=== PATIENT | female | born 1955 | race Caucasian/White ===

== ENCOUNTER 2016-10-28 03:21 | Inpatient (IN) | payer OTHER ==
[~2016-10-28] VITALS: Ht 174 cm; Wt 98.3 kg
[~2016-10-28 03:21] MED LIST: AMITRIPTYLINE H25 MG PO; ASPIRIN EC325 MG PO; AUGMENTIN875 MG PO; BACTRIM,SEPT1 TABLET PO; BISOPROLOL-HCT1 EACH PO; BUSPIRONE HCL10 MG PO; CARDIZEM60 MG PO; CELEXA20 MG PO; CITALOPRAM HBR20 MG PO; FLORASTOR250 MG PO; GLIPIZIDE XL10 MG PO; GLIPIZIDE5 MG PO; GLUCOPHAGE500 MG PO; KEFLEX500 MG PO; LEVEMIR FL100 UNIT/1 SC; LISINOPRIL-HCT1 EAC3 PO; MECLIZINE HCL25 MG PO; METFORMIN HCL1000 MG PO; NEURONTIN300 MG PO; NEXIUM40 MG PO; NITROSTAT0.4 MG SL; PEN-VEE K,VEET500 MG PO; PRAVASTATIN SOD40 MG PO; PRIMIDONE50 MG PO; PROMETHAZINE12.5 M1 PO; VOLTAREN 1% GE100 GM TP; ZIAC 10/6.251 TABLET PO; ZOFRAN ODT4 MG PO
[2016-10-28 04:25] LABS: EOSINOPHIL (%) 0.5 % (0-5); EOSINOPHIL COUNT 0.1 K/uL (0-0.3); HEMATOCRIT 38.3 % (36.0-46.0); IMMATURE GRANULOCYTE (%) 0.7 % (0.0-0.7); IMMATURE GRANULOCYTE COUNT 0.8 K/uL; MCH 29.8 PG (29.0-34.0); MCHC 33.9 G/DL (30.0-36.0); MCV 87.8 FL (83-99); MEAN PLAT.VOLUME 12.1 uM^3 (9.5-12.4); MONOCYTE (%) 3.2 % (3-12); MONOCYTE COUNT 0.4 K/uL (0-0.8); NEUTROPHIL (%) 86.8 % (45-76); NEUTROPHIL COUNT 10.1 K/uL (1.8-6.4); PLATELET COUNT 205 K/uL (156-360); RBC DIS.WIDTH-CV 13.1 % (11.8-14.6); RBC DIS.WIDTH-SD 40.6 % (39-53); RED BLOOD COUNT 4.36 M/uL (3.80-5.20); WHITE BLOOD COUNT 11.6 K/uL (4.1-10.2)
[2016-10-28 04:35] LABS: CHLORIDE 101 mEq/L (99-109); POTASSIUM 3.8 mEq/L (3.7-5.4); SODIUM 136 mEq/L (136-147)
[2016-10-28 04:37] LABS: GLUCOSE 340 mg/dL (70-99)
[2016-10-28 04:38] LABS: ANION GAP 10 MEQ/L (2-14)
[2016-10-28 04:39] LABS: TOTAL BILIRUBIN 0.5 mg/dL (0.0-1.0)
[2016-10-28 04:40] LABS: ALKALINE PHOSPHATASE 74 IU/L (3-129)
[2016-10-28 04:41] LABS: GFR ESTIMATE (CALCULATED) > 59 mL/min/
[2016-10-28 04:42] LABS: UREA NITROGEN (BUN) 14 mg/dL (9-23)
[2016-10-28 06:37] LABS: ADD MIUA? YES; BILIRUBIN NEGATIVE; BLOOD SMALL; COLOR YELLOW ((YELLOW)); GLUCOSE (STRIP) >=1000; KETONES 15; LEUKOCYTES SMALL; NITRITE NEGATIVE; PROTEIN (STRIP) TRACE; SPECIFIC GRAVITY 1.034 (1.000-1.030); UROBILINOGEN 0.2 MG/DL (0.2-1.0)
[2016-10-28 06:53] LABS: EPITHELIAL CELLS RARE; RED BLOOD CELLS RARE /HPF (0-5)
[2016-10-28 06:54] LABS: BACTERIA 3+; CASTS NONE SEEN /LPF; CRYSTALS NONE SEEN; MUCUS NONE SEEN; UCUL ADDED? YES
[2016-10-28 08:15] LABS: POINT-OF-CARE METER ID UU13113747
[2016-10-28 08:35] LABS: TROP-I INTERPRETATION NEGATIVE; TROPONIN-I 0.01 ng/mL (0.0-0.30)
[2016-10-28 09:11] VITALS: BP 190/92
[2016-10-28 09:37] VITALS: BP 157/75
[2016-10-28 11:14] VITALS: BP 145/69
[2016-10-28 15:13] LABS: EOSINOPHIL (%) 0 % (0-5); HEMATOCRIT 38.7 % (36.0-46.0); IMMATURE GRANULOCYTE (%) 0.4 % (0.0-0.7); IMMATURE GRANULOCYTE COUNT 0.1 K/uL; MCH 30.1 PG (29.0-34.0); MCHC 34.1 G/DL (30.0-36.0); MCV 88.4 FL (83-99); MEAN PLAT.VOLUME 12.5 uM^3 (9.5-12.4); MONOCYTE (%) 1.1 % (3-12); MONOCYTE COUNT 0.2 K/uL (0-0.8); NEUTROPHIL (%) 91.8 % (45-76); NEUTROPHIL COUNT 13.6 K/uL (1.8-6.4); PLATELET COUNT 247 K/uL (156-360); RBC DIS.WIDTH-CV 13.2 % (11.8-14.6); RBC DIS.WIDTH-SD 42.2 % (39-53); RED BLOOD COUNT 4.38 M/uL (3.80-5.20); WHITE BLOOD COUNT 14.8 K/uL (4.1-10.2)
[2016-10-28 15:34] LABS: ALKALINE PHOSPHATASE 76 IU/L (3-129); ANION GAP 8 MEQ/L (2-14); CHLORIDE 98 MEQ/L (99-109); GFR ESTIMATE (CALCULATED) > 59 mL/min/; GLUCOSE 331 mg/dL (70-99); POTASSIUM 4.4 MEQ/L (3.7-5.4); SAMPLE HEMOLYSIS CHECK 1; SAMPLE ICTERIC CHECK 0; SAMPLE LIPEMIA CHECK 0; SODIUM 131 MEQ/L (136-147); TOTAL BILIRUBIN 0.4 MG/DL (0.0-1.0); UREA NITROGEN (BUN) 16 mg/dL (9-23)
[2016-10-28 15:38] VITALS: BP 157/77
[2016-10-28 20:32] VITALS: BP 172/80
[2016-10-28 21:29] LABS: POINT-OF-CARE METER ID UU14162513
[2016-10-28 23:41] VITALS: BP 121/58
[2016-10-29] VITALS (8 sets, daily range): BP systolic 128–170; BP diastolic 61–82
[2016-10-29 03:13] LABS: POINT-OF-CARE METER ID UU13113700
[2016-10-29 06:13] LABS: EOSINOPHIL (%) 0.1 % (0-5); HEMATOCRIT 37.6 % (36.0-46.0); IMMATURE GRANULOCYTE (%) 0.4 % (0.0-0.7); IMMATURE GRANULOCYTE COUNT 0.1 K/uL; LYMPHOCYTE COUNT 1.4 K/uL (1.0-2.8); MCH 28.7 PG (29.0-34.0); MCHC 32.2 G/DL (30.0-36.0); MCV 89.1 FL (83-99); MEAN PLAT.VOLUME 12.8 uM^3 (9.5-12.4); MONOCYTE (%) 3.8 % (3-12); MONOCYTE COUNT 0.5 K/uL (0-0.8); NEUTROPHIL (%) 84.9 % (45-76); NEUTROPHIL COUNT 11.4 K/uL (1.8-6.4); PLATELET COUNT 250 K/uL (156-360); RBC DIS.WIDTH-CV 13.6 % (11.8-14.6); RBC DIS.WIDTH-SD 43.7 % (39-53); RED BLOOD COUNT 4.22 M/uL (3.80-5.20); WHITE BLOOD COUNT 13.4 K/uL (4.1-10.2)
[2016-10-29 06:37] LABS: ANION GAP 8 MEQ/L (2-14); CHLORIDE 100 MEQ/L (99-109); GFR ESTIMATE (CALCULATED) > 59 mL/min/; GLUCOSE 250 mg/dL (70-99); POTASSIUM 4.2 MEQ/L (3.7-5.4); SAMPLE HEMOLYSIS CHECK 0; SAMPLE ICTERIC CHECK 0; SAMPLE LIPEMIA CHECK 0; SODIUM 135 MEQ/L (136-147); UREA NITROGEN (BUN) 17 mg/dL (9-23)
[2016-10-29 07:02] LABS: Estimated Average Glucose 321 mg/dL (70-123); HEMOGLOBIN A1c (GLYCOHEMOGLOB) 12.8 % HGB (Below 5.7)
[2016-10-29 10:32] LABS: POINT-OF-CARE METER ID UU13113700
[2016-10-29 11:33] LABS: TROP-I INTERPRETATION NEGATIVE; TROPONIN-I < 0.01 ng/mL (0.0-0.30)
[2016-10-29 16:56] LABS: TROP-I INTERPRETATION NEGATIVE; TROPONIN-I < 0.01 ng/mL (0.0-0.30)
[2016-10-29 17:56] LABS: POINT-OF-CARE METER ID UU14162513
[2016-10-30 00:17] VITALS: BP 156/69
[2016-10-30 03:51] VITALS: BP 152/67
[2016-10-30 07:16] LABS: EOSINOPHIL (%) 0.2 % (0-5); HEMATOCRIT 37.1 % (36.0-46.0); IMMATURE GRANULOCYTE (%) 0.6 % (0.0-0.7); IMMATURE GRANULOCYTE COUNT 0.1 K/uL; LYMPHOCYTE COUNT 1.7 K/uL (1.0-2.8); MCH 28.7 PG (29.0-34.0); MCHC 32.6 G/DL (30.0-36.0); MCV 87.9 FL (83-99); MEAN PLAT.VOLUME 12.5 uM^3 (9.5-12.4); MONOCYTE (%) 4.7 % (3-12); MONOCYTE COUNT 0.5 K/uL (0-0.8); NEUTROPHIL (%) 78.6 % (45-76); NEUTROPHIL COUNT 8.5 K/uL (1.8-6.4); PLATELET COUNT 239 K/uL (156-360); RBC DIS.WIDTH-CV 13.4 % (11.8-14.6); RBC DIS.WIDTH-SD 42.7 % (39-53); RED BLOOD COUNT 4.22 M/uL (3.80-5.20); WHITE BLOOD COUNT 10.8 K/uL (4.1-10.2)
[2016-10-30 07:43] VITALS: BP 153/81
[2016-10-30 08:40] LABS: ALKALINE PHOSPHATASE 64 IU/L (3-129); ANION GAP 7 MEQ/L (2-14); CHLORIDE 98 MEQ/L (99-109); GFR ESTIMATE (CALCULATED) > 59 mL/min/; GLUCOSE 165 mg/dL (70-99); POTASSIUM 3.8 MEQ/L (3.7-5.4); SAMPLE HEMOLYSIS CHECK 0; SAMPLE ICTERIC CHECK 0; SAMPLE LIPEMIA CHECK 0; SODIUM 134 MEQ/L (136-147); TOTAL BILIRUBIN 0.5 MG/DL (0.0-1.0); UREA NITROGEN (BUN) 16 mg/dL (9-23)
[2016-10-30 11:53] VITALS: BP 159/68
[2016-10-30] MEDS ORDERED: VANOS60 GM TP (12:09)
[2016-10-30] MEDS ORDERED: DICLOFENAC SOD100 G1 TP (12:11)
[2016-10-30] MEDS ORDERED: LIDOCAINE HCL35 GM TP (12:11)
[2016-10-30 20:11] VITALS: BP 178/79
[2016-10-30 23:41] VITALS: BP 161/74
[2016-10-31 03:32] VITALS: BP 163/86
[2016-10-31 04:02] VITALS: BP 130/60
[2016-10-31 06:45] VITALS: BP 179/76
[2016-10-31 07:36] LABS: HEMATOCRIT 37.5 % (36.0-46.0); MCH 29.2 PG (29.0-34.0); MCHC 33.1 G/DL (30.0-36.0); MCV 88.4 FL (83-99); MEAN PLAT.VOLUME 12.7 uM^3 (9.5-12.4); PLATELET COUNT 252 K/uL (156-360); RBC DIS.WIDTH-CV 13.2 % (11.8-14.6); RBC DIS.WIDTH-SD 42.6 % (39-53); RED BLOOD COUNT 4.24 M/uL (3.80-5.20); WHITE BLOOD COUNT 10.3 K/uL (4.1-10.2)
[2016-10-31 08:09] LABS: ANION GAP 9 MEQ/L (2-14); CHLORIDE 101 MEQ/L (99-109); GFR ESTIMATE (CALCULATED) > 59 mL/min/; GLUCOSE 111 mg/dL (70-99); POTASSIUM 3.9 MEQ/L (3.7-5.4); SAMPLE HEMOLYSIS CHECK 0; SAMPLE ICTERIC CHECK 0; SAMPLE LIPEMIA CHECK 0; SODIUM 139 MEQ/L (136-147); UREA NITROGEN (BUN) 11 mg/dL (9-23)
[2016-10-31 15:30] VITALS: BP 157/76
[2016-10-31 23:33] VITALS: BP 145/73
[2016-11-01 07:10] LABS: HEMATOCRIT 37.2 % (36.0-46.0); MCH 28.8 PG (29.0-34.0); MCHC 32.8 G/DL (30.0-36.0); MCV 87.7 FL (83-99); MEAN PLAT.VOLUME 12.6 uM^3 (9.5-12.4); PLATELET COUNT 228 K/uL (156-360); RBC DIS.WIDTH-CV 13.3 % (11.8-14.6); RBC DIS.WIDTH-SD 42.4 % (39-53); RED BLOOD COUNT 4.24 M/uL (3.80-5.20); WHITE BLOOD COUNT 10.4 K/uL (4.1-10.2)
[2016-11-01 07:33] LABS: ANION GAP 9 MEQ/L (2-14); CHLORIDE 101 MEQ/L (99-109); GFR ESTIMATE (CALCULATED) > 59 mL/min/; GLUCOSE 102 mg/dL (70-99); POTASSIUM 3.6 MEQ/L (3.7-5.4); SAMPLE HEMOLYSIS CHECK 0; SAMPLE ICTERIC CHECK 0; SAMPLE LIPEMIA CHECK 0; SODIUM 137 MEQ/L (136-147); UREA NITROGEN (BUN) 12 mg/dL (9-23)
[2016-11-01 07:41] VITALS: BP 169/78
[2016-11-01 16:52] VITALS: BP 164/76
[2016-11-01 23:00] VITALS: BP 142/66
[2016-11-02 07:22] LABS: HEMATOCRIT 35.2 % (36.0-46.0); MCH 29.4 PG (29.0-34.0); MCHC 33.2 G/DL (30.0-36.0); MCV 88.4 FL (83-99); PLATELET COUNT 255 K/uL (156-360); RBC DIS.WIDTH-CV 13.3 % (11.8-14.6); RBC DIS.WIDTH-SD 42.4 % (39-53); RED BLOOD COUNT 3.98 M/uL (3.80-5.20); WHITE BLOOD COUNT 10.9 K/uL (4.1-10.2)
[2016-11-02 07:34] VITALS: BP 162/73
[2016-11-02 07:51] LABS: ANION GAP 7 MEQ/L (2-14); CHLORIDE 101 MEQ/L (99-109); GFR ESTIMATE (CALCULATED) > 59 mL/min/; GLUCOSE 78 mg/dL (70-99); POTASSIUM 3.8 MEQ/L (3.7-5.4); SAMPLE HEMOLYSIS CHECK 0; SAMPLE ICTERIC CHECK 0; SAMPLE LIPEMIA CHECK 0; SODIUM 137 MEQ/L (136-147); UREA NITROGEN (BUN) 11 mg/dL (9-23)
[2016-11-02 16:36] VITALS: BP 147/66
[2016-11-03 00:18] VITALS: BP 149/70
[2016-11-03 07:00] VITALS: BP 139/63
[2016-11-03 07:02] LABS: HEMATOCRIT 34.4 % (36.0-46.0); MCH 29.5 PG (29.0-34.0); MCHC 33.1 G/DL (30.0-36.0); MCV 88.9 FL (83-99); MEAN PLAT.VOLUME 12.2 uM^3 (9.5-12.4); PLATELET COUNT 245 K/uL (156-360); RBC DIS.WIDTH-CV 13.5 % (11.8-14.6); RBC DIS.WIDTH-SD 43.4 % (39-53); RED BLOOD COUNT 3.87 M/uL (3.80-5.20); WHITE BLOOD COUNT 10.2 K/uL (4.1-10.2)
[2016-11-03 07:26] LABS: ANION GAP 7 MEQ/L (2-14); CHLORIDE 102 MEQ/L (99-109); GFR ESTIMATE (CALCULATED) > 59 mL/min/; GLUCOSE 64 mg/dL (70-99); POTASSIUM 4.1 MEQ/L (3.7-5.4); SAMPLE HEMOLYSIS CHECK 0; SAMPLE ICTERIC CHECK 0; SAMPLE LIPEMIA CHECK 0; SODIUM 139 MEQ/L (136-147); UREA NITROGEN (BUN) 11 mg/dL (9-23)
[2016-11-03 10:05] LABS: C DIFF TOXIN POSITIVE (NEGATIVE)
[2016-11-03 10:21] LABS: PROBE CHECK PASS
[2016-11-03 12:01] VITALS: BP 189/94
[2016-11-03 14:00] VITALS: BP 128/60
[2016-11-03 15:08] VITALS: BP 132/60
[2016-11-03 23:46] VITALS: BP 129/62
[2016-11-04 06:59] VITALS: BP 142/69
[2016-11-04 07:10] LABS: HEMATOCRIT 34.3 % (36.0-46.0); MCH 29.5 PG (29.0-34.0); MCHC 33.2 G/DL (30.0-36.0); MCV 88.6 FL (83-99); MEAN PLAT.VOLUME 12.6 uM^3 (9.5-12.4); PLATELET COUNT 250 K/uL (156-360); RBC DIS.WIDTH-CV 13.5 % (11.8-14.6); RBC DIS.WIDTH-SD 43.2 % (39-53); RED BLOOD COUNT 3.87 M/uL (3.80-5.20); WHITE BLOOD COUNT 10.3 K/uL (4.1-10.2)
[2016-11-04 07:34] LABS: ANION GAP 7 MEQ/L (2-14); CHLORIDE 99 MEQ/L (99-109); GFR ESTIMATE (CALCULATED) > 59 mL/min/; GLUCOSE 63 mg/dL (70-99); POTASSIUM 3.8 MEQ/L (3.7-5.4); SAMPLE HEMOLYSIS CHECK 0; SAMPLE ICTERIC CHECK 0; SAMPLE LIPEMIA CHECK 0; SODIUM 137 MEQ/L (136-147); UREA NITROGEN (BUN) 14 mg/dL (9-23)
[2016-11-04 15:22] VITALS: BP 142/64
[2016-11-05] VITALS: BP 156/72
[2016-11-05 07:00] VITALS: BP 138/65
[2016-11-05 07:37] LABS: HEMATOCRIT 34.7 % (36.0-46.0); MCH 29.4 PG (29.0-34.0); MCHC 33.1 G/DL (30.0-36.0); MCV 88.7 FL (83-99); MEAN PLAT.VOLUME 12.2 uM^3 (9.5-12.4); PLATELET COUNT 255 K/uL (156-360); RBC DIS.WIDTH-CV 13.6 % (11.8-14.6); RBC DIS.WIDTH-SD 43.5 % (39-53); RED BLOOD COUNT 3.91 M/uL (3.80-5.20); WHITE BLOOD COUNT 10.7 K/uL (4.1-10.2)
[2016-11-05 08:02] LABS: ANION GAP 8 MEQ/L (2-14); CHLORIDE 100 MEQ/L (99-109); GFR ESTIMATE (CALCULATED) > 59 mL/min/; GLUCOSE 66 mg/dL (70-99); POTASSIUM 3.5 MEQ/L (3.7-5.4); SAMPLE HEMOLYSIS CHECK 0; SAMPLE ICTERIC CHECK 0; SAMPLE LIPEMIA CHECK 0; SODIUM 138 MEQ/L (136-147); UREA NITROGEN (BUN) 14 mg/dL (9-23)
[2016-11-05 15:31] VITALS: BP 158/62
[2016-11-05 19:20] VITALS: BP 157/70
[2016-11-06] VITALS: BP 133/65
[2016-11-06 06:31] LABS: HEMATOCRIT 35.6 % (36.0-46.0); MCHC 32.6 G/DL (30.0-36.0); MEAN PLAT.VOLUME 12.3 uM^3 (9.5-12.4); PLATELET COUNT 249 K/uL (156-360); RBC DIS.WIDTH-CV 13.6 % (11.8-14.6); RBC DIS.WIDTH-SD 43.9 % (39-53); WHITE BLOOD COUNT 9.8 K/uL (4.1-10.2)
[2016-11-06 07:01] LABS: ANION GAP 10 MEQ/L (2-14); CHLORIDE 99 MEQ/L (99-109); GFR ESTIMATE (CALCULATED) > 59 mL/min/; POTASSIUM 3.8 MEQ/L (3.7-5.4); SAMPLE HEMOLYSIS CHECK 0; SAMPLE ICTERIC CHECK 0; SAMPLE LIPEMIA CHECK 0; SODIUM 138 MEQ/L (136-147); UREA NITROGEN (BUN) 13 mg/dL (9-23)
[2016-11-06 07:02] LABS: GLUCOSE 124 mg/dL (70-99)
[2016-11-06 08:05] VITALS: BP 140/80
[2016-11-06 15:28] VITALS: BP 140/80
[2016-11-06] MEDS ORDERED: METRONIDAZOLE500 MG PO (17:11)
[2016-11-06] MEDS ORDERED: CITALOPRAM HBR20 MG PO (17:16)
[2016-11-06] MEDS ORDERED: FAMOTIDINE40 MG PO (17:16)
[2016-11-06 19:38] VITALS: BP 122/57
== END 2016-11-06 19:30 | DRG 690 ==
LOC: EME → EDBD 03:21 → EME 03:21 → 5WEST 07:17 → EDOF 07:17 → 5WEST 08:43 → 2EAST 10-29 17:45 → 5WEST 10-29 17:45 → 2EAST 10-29 21:34
PROVIDERS: Emergency Medicine; Hospitalist; Internal Medicine; Physician Assistant Medical
DX: N39.0 Urinary tract infection, site not specified (principal); A04.7 Enterocolitis due to Clostridium difficile; E11.65 Type 2 diabetes mellitus with hyperglycemia; E11.43 Type 2 diabetes mellitus with diabetic autonomic (poly)neuropathy; I10 Essential (primary) hypertension; E78.5 Hyperlipidemia, unspecified; I25.10 Atherosclerotic heart disease of native coronary artery without angina pectoris; K44.9 Diaphragmatic hernia without obstruction or gangrene; B96.20 Unspecified Escherichia coli [E. coli] as the cause of diseases classified elsewhere; Z91.19 Patient's noncompliance with other medical treatment and regimen
CPT/HCPCS: 70450; 71010; 74176; 80048; 80053; 81003; 82533 91; 82948; 83036; 83605; 84443; 84484; 85025; 85025 91; 85027; 87040; 87077; 87086; 87186; 87493; 93005; 97530 GO; 99281; 99285; G0378; J0360; J0696; J1100; J1200; J1650; J1815; J2405; J2765; J7030; J7050; S0028

== ENCOUNTER 2016-11-23 20:14 | Inpatient (IN) | payer OTHER ==
[~2016-11-23] VITALS: Ht 172.7 cm; Wt 83.5 kg
[~2016-11-23 20:14] MED LIST changes: +DICLOFENAC SOD100 G1 TP; +FAMOTIDINE40 MG PO; +LIDOCAINE HCL35 GM TP; +METRONIDAZOLE500 MG PO; +VANOS60 GM TP
[2016-11-23 20:41] LABS: HEMATOCRIT 42.3 % (36.0-46.0); MCH 29.4 PG (29.0-34.0); MCHC 33.8 G/DL (30.0-36.0); MCV 86.9 FL (83-99); MEAN PLAT.VOLUME 12.3 uM^3 (9.5-12.4); PLATELET COUNT 250 K/uL (156-360); RBC DIS.WIDTH-CV 13.5 % (11.8-14.6); RBC DIS.WIDTH-SD 41.7 % (39-53); RED BLOOD COUNT 4.87 M/uL (3.80-5.20); WHITE BLOOD COUNT 12.3 K/uL (4.1-10.2)
[2016-11-23 21:07] LABS: CHLORIDE 98 mEq/L (99-109); POTASSIUM 3.4 mEq/L (3.7-5.4); SODIUM 138 mEq/L (136-147)
[2016-11-23 21:09] LABS: GLUCOSE 75 mg/dL (70-99)
[2016-11-23 21:10] LABS: ANION GAP 13 MEQ/L (2-14)
[2016-11-23 21:11] LABS: TOTAL BILIRUBIN 0.5 mg/dL (0.0-1.0)
[2016-11-23 21:13] LABS: ALKALINE PHOSPHATASE 43 IU/L (3-129); GFR ESTIMATE (CALCULATED) 53 mL/min/
[2016-11-23 21:14] LABS: UREA NITROGEN (BUN) 24 mg/dL (9-23)
[2016-11-23 21:16] LABS: LIPASE 54 U/L (1.0-51.0)
[2016-11-23 23:30] LABS: ADD MIUA? YES; BILIRUBIN NEGATIVE; BLOOD NEGATIVE; COLOR AMBER ((YELLOW)); GLUCOSE (STRIP) NEGATIVE; KETONES 5; LEUKOCYTES MODERATE; NITRITE NEGATIVE; PROTEIN (STRIP) 100; SPECIFIC GRAVITY 1.027 (1.000-1.030); UROBILINOGEN 0.2 MG/DL (0.2-1.0)
[2016-11-23 23:43] LABS: BACTERIA 2+ /HPF; EPITHELIAL CELLS 1+ /HPF; MUCUS 4+ /LPF; UCUL ADDED? YES; WHITE BLOOD CELLS TNTC /HPF (0-5); WHITE BLOOD CELLS CLUMP MOD /HPF (0-5)
[2016-11-24] VITALS (7 sets, daily range): BP systolic 122–168; BP diastolic 60–79
[2016-11-24] MEDS ORDERED: CARDIZEM60 MG PO (01:20)
[2016-11-24] MEDS ORDERED: ZOFRAN4 MG PO (01:20)
[2016-11-24] MEDS ORDERED: PRAVACHOL40 MG PO (01:21)
[2016-11-24] MEDS ORDERED: METFORMIN HCL500 MG PO (01:21)
[2016-11-24] MEDS ORDERED: GLIPIZIDE10 MG PO (01:22)
[2016-11-24] MEDS ORDERED: BISOPROLOL-HCT1 EACH PO (01:22)
[2016-11-24] MEDS ORDERED: LEVEMIR FL100 UNIT/1 SC (01:22)
[2016-11-24] MEDS ORDERED: PRIMIDONE50 MG PO (01:23)
[2016-11-24] MEDS ORDERED: GABAPENTIN600 MG PO (01:23)
[2016-11-24] MEDS ORDERED: CELEXA20 MG PO (01:24)
[2016-11-24] MEDS ORDERED: FAMOTIDINE40 MG PO (01:24)
[2016-11-24] MEDS ORDERED: MECLIZINE HCL25 MG PO (01:24)
[2016-11-24] MEDS ORDERED: NITROSTAT0.3 MG SL (01:25)
[2016-11-24] MEDS ORDERED: REMERON15 M2 PO (01:25)
[2016-11-24] MEDS ORDERED: PROMETHAZINE12.5 M1 PO (01:26)
[2016-11-24] MEDS ORDERED: ENEMA133 M2 PR (01:26)
[2016-11-24] MEDS ORDERED: DULCOLAX10 MG PR (01:26)
[2016-11-24] MEDS ORDERED: TRANSDERM-SCO1 PATCH TD (01:27)
[2016-11-24] MEDS ORDERED: TYLENOL REGULA325 MG PO (01:28)
[2016-11-24] MEDS ORDERED: MILK OF MAGN PO (01:28)
[2016-11-24 03:04] LABS: POINT-OF-CARE METER ID UU13113831
[2016-11-24 09:11] LABS: POINT-OF-CARE METER ID UU14162513
[2016-11-24 10:59] LABS: HEMATOCRIT 37.5 % (36.0-46.0); MCH 29.6 PG (29.0-34.0); MCHC 33.3 G/DL (30.0-36.0); MCV 88.7 FL (83-99); MEAN PLAT.VOLUME 12.7 uM^3 (9.5-12.4); PLATELET COUNT 212 K/uL (156-360); RBC DIS.WIDTH-CV 13.6 % (11.8-14.6); RBC DIS.WIDTH-SD 44.4 % (39-53); RED BLOOD COUNT 4.23 M/uL (3.80-5.20); WHITE BLOOD COUNT 8.9 K/uL (4.1-10.2)
[2016-11-24 11:47] LABS: ALKALINE PHOSPHATASE 33 IU/L (3-129); ANION GAP 10 MEQ/L (2-14); CHLORIDE 99 MEQ/L (99-109); GFR ESTIMATE (CALCULATED) > 59 mL/min/; POTASSIUM 3.2 MEQ/L (3.7-5.4); SAMPLE HEMOLYSIS CHECK 0; SAMPLE ICTERIC CHECK 0; SAMPLE LIPEMIA CHECK 0; SODIUM 137 MEQ/L (136-147); TOTAL BILIRUBIN 0.4 MG/DL (0.0-1.0); UREA NITROGEN (BUN) 16 mg/dL (9-23)
[2016-11-24 11:48] LABS: GLUCOSE 108 mg/dL (70-99)
[2016-11-24 13:04] LABS: Estimated Average Glucose 217 mg/dL (70-123)
[2016-11-24 13:04] LABS: POINT-OF-CARE METER ID UU13113831
[2016-11-24 13:58] LABS: HEMOGLOBIN A1c (GLYCOHEMOGLOB) 9.2 % HGB (Below 5.7)
[2016-11-24 18:36] LABS: POINT-OF-CARE METER ID UU14162513
[2016-11-25] VITALS: BP 145/78
[2016-11-25 03:33] VITALS: BP 125/61
[2016-11-25 06:11] LABS: HEMATOCRIT 37.6 % (36.0-46.0); MCH 29.7 PG (29.0-34.0); MEAN PLAT.VOLUME 12.4 uM^3 (9.5-12.4); PLATELET COUNT 172 K/uL (156-360); RBC DIS.WIDTH-CV 13.5 % (11.8-14.6); RBC DIS.WIDTH-SD 44.2 % (39-53); RED BLOOD COUNT 4.18 M/uL (3.80-5.20); WHITE BLOOD COUNT 7.3 K/uL (4.1-10.2)
[2016-11-25 06:36] LABS: ANION GAP 7 MEQ/L (2-14); CHLORIDE 102 MEQ/L (99-109); GFR ESTIMATE (CALCULATED) > 59 mL/min/; GLUCOSE 82 mg/dL (70-99); POTASSIUM 3.4 MEQ/L (3.7-5.4); SAMPLE HEMOLYSIS CHECK 0; SAMPLE ICTERIC CHECK 0; SAMPLE LIPEMIA CHECK 0; SODIUM 138 MEQ/L (136-147); UREA NITROGEN (BUN) 10 mg/dL (9-23)
[2016-11-25 07:57] VITALS: BP 134/62
[2016-11-25 12:33] VITALS: BP 144/67
[2016-11-25 15:32] VITALS: BP 158/79
[2016-11-25 19:31] VITALS: BP 158/78
[2016-11-25 21:53] LABS: POINT-OF-CARE METER ID UU14188625
[2016-11-26] VITALS: BP 112/56
[2016-11-26 04:00] VITALS: BP 126/65
[2016-11-26 06:56] LABS: HEMATOCRIT 35.9 % (36.0-46.0); MCH 29.8 PG (29.0-34.0); MCHC 33.1 G/DL (30.0-36.0); MCV 89.8 FL (83-99); MEAN PLAT.VOLUME 12.3 uM^3 (9.5-12.4); PLATELET COUNT 171 K/uL (156-360); RBC DIS.WIDTH-CV 13.7 % (11.8-14.6); WHITE BLOOD COUNT 5.4 K/uL (4.1-10.2)
[2016-11-26 07:26] LABS: ALKALINE PHOSPHATASE 32 IU/L (3-129); ANION GAP 11 MEQ/L (2-14); CHLORIDE 102 MEQ/L (99-109); GFR ESTIMATE (CALCULATED) > 59 mL/min/; GLUCOSE 112 mg/dL (70-99); POTASSIUM 3.4 MEQ/L (3.7-5.4); SAMPLE HEMOLYSIS CHECK 0; SAMPLE ICTERIC CHECK 0; SAMPLE LIPEMIA CHECK 0; SODIUM 137 MEQ/L (136-147); TOTAL BILIRUBIN 0.5 MG/DL (0.0-1.0); UREA NITROGEN (BUN) 9 mg/dL (9-23)
[2016-11-26 07:35] LABS: TROP-I INTERPRETATION NEGATIVE; TROPONIN-I < 0.01 ng/mL (0.0-0.30)
[2016-11-26 07:55] VITALS: BP 131/73
[2016-11-26 10:28] LABS: LIPASE 32 U/L (1.0-51.0)
[2016-11-26 14:01] VITALS: BP 131/66
[2016-11-26 16:00] VITALS: BP 142/104
[2016-11-26 17:53] LABS: POINT-OF-CARE METER ID UU14174225
[2016-11-26 20:00] VITALS: BP 115/57
[2016-11-26 21:54] LABS: POINT-OF-CARE METER ID UU14174225
[2016-11-26 22:00] LABS: C DIFF TOXIN POSITIVE (NEGATIVE)
[2016-11-26 22:07] LABS: PROBE CHECK PASS
[2016-11-27] VITALS: BP 116/64
[2016-11-27 04:00] VITALS: BP 143/68
[2016-11-27 06:19] LABS: EOSINOPHIL (%) 3.4 % (0-5); EOSINOPHIL COUNT 0.2 K/uL (0-0.3); HEMATOCRIT 35.2 % (36.0-46.0); IMMATURE GRANULOCYTE (%) 0.4 % (0.0-0.7); LYMPHOCYTE COUNT 1.3 K/uL (1.0-2.8); MCH 28.6 PG (29.0-34.0); MCHC 32.4 G/DL (30.0-36.0); MCV 88.4 FL (83-99); MEAN PLAT.VOLUME 12.2 uM^3 (9.5-12.4); MONOCYTE (%) 7.9 % (3-12); MONOCYTE COUNT 0.4 K/uL (0-0.8); NEUTROPHIL (%) 61.7 % (45-76); PLATELET COUNT 179 K/uL (156-360); RBC DIS.WIDTH-CV 13.4 % (11.8-14.6); RBC DIS.WIDTH-SD 43.7 % (39-53); RED BLOOD COUNT 3.98 M/uL (3.80-5.20); WHITE BLOOD COUNT 4.9 K/uL (4.1-10.2)
[2016-11-27 06:49] LABS: ALKALINE PHOSPHATASE 33 IU/L (3-129); ANION GAP 8 MEQ/L (2-14); CHLORIDE 102 MEQ/L (99-109); GFR ESTIMATE (CALCULATED) > 59 mL/min/; GLUCOSE 101 mg/dL (70-99); HDL CHOLESTEROL 27 MG/DL (Desirable>=50); LDL CHOLESTEROL 43 mg/dL (Desirable<100); NON-HDL CHOLESTEROL 67 mg/dL (Desirable<160); POTASSIUM 3.5 MEQ/L (3.7-5.4); SAMPLE HEMOLYSIS CHECK 0; SAMPLE ICTERIC CHECK 0; SAMPLE LIPEMIA CHECK 0; SODIUM 137 MEQ/L (136-147); TOTAL BILIRUBIN 0.4 MG/DL (0.0-1.0); TOTAL CHOLESTEROL 94 mg/dL (Desirable<200); TRIGLYCERIDES 122 MG/DL (Normal: <150); UREA NITROGEN (BUN) 8 mg/dL (9-23)
[2016-11-27 08:02] VITALS: BP 150/82
[2016-11-27 11:58] VITALS: BP 140/79
[2016-11-27 16:11] VITALS: BP 146/71
[2016-11-27 20:00] VITALS: BP 142/64
[2016-11-28] VITALS: BP 122/65
[2016-11-28 03:52] LABS: POINT-OF-CARE METER ID UU14174225
[2016-11-28 04:00] VITALS: BP 143/67
[2016-11-28 06:58] LABS: HEMATOCRIT 34.5 % (36.0-46.0); MCH 29.6 PG (29.0-34.0); MCHC 33.3 G/DL (30.0-36.0); MCV 88.7 FL (83-99); MEAN PLAT.VOLUME 12.2 uM^3 (9.5-12.4); PLATELET COUNT 164 K/uL (156-360); RBC DIS.WIDTH-CV 13.5 % (11.8-14.6); RBC DIS.WIDTH-SD 43.7 % (39-53); RED BLOOD COUNT 3.89 M/uL (3.80-5.20); WHITE BLOOD COUNT 5.3 K/uL (4.1-10.2)
[2016-11-28 07:20] LABS: ALKALINE PHOSPHATASE 32 IU/L (3-129); ANION GAP 10 MEQ/L (2-14); CHLORIDE 102 MEQ/L (99-109); GFR ESTIMATE (CALCULATED) > 59 mL/min/; GLUCOSE 104 mg/dL (70-99); POTASSIUM 3.5 MEQ/L (3.7-5.4); SAMPLE HEMOLYSIS CHECK 0; SAMPLE ICTERIC CHECK 0; SAMPLE LIPEMIA CHECK 0; SODIUM 137 MEQ/L (136-147); UREA NITROGEN (BUN) 6 mg/dL (9-23)
[2016-11-28 07:21] LABS: TOTAL BILIRUBIN 0.3 MG/DL (0.0-1.0)
[2016-11-28 07:49] VITALS: BP 138/68
[2016-11-28 11:35] VITALS: BP 135/72
[2016-11-28 15:09] VITALS: BP 147/67
[2016-11-28 17:18] LABS: POINT-OF-CARE METER ID UU14188625
[2016-11-28 19:31] VITALS: BP 143/72
[2016-11-28 21:31] LABS: POINT-OF-CARE METER ID UU14188625
[2016-11-29 00:52] VITALS: BP 125/70
[2016-11-29 04:25] VITALS: BP 131/69
[2016-11-29 06:27] LABS: HEMATOCRIT 37.7 % (36.0-46.0); MCH 28.4 PG (29.0-34.0); MCHC 32.1 G/DL (30.0-36.0); MCV 88.5 FL (83-99); MEAN PLAT.VOLUME 12.1 uM^3 (9.5-12.4); PLATELET COUNT 178 K/uL (156-360); RBC DIS.WIDTH-CV 13.7 % (11.8-14.6); RED BLOOD COUNT 4.26 M/uL (3.80-5.20); WHITE BLOOD COUNT 4.6 K/uL (4.1-10.2)
[2016-11-29 06:52] LABS: ALKALINE PHOSPHATASE 32 IU/L (3-129); ANION GAP 9 MEQ/L (2-14); CHLORIDE 103 MEQ/L (99-109); GFR ESTIMATE (CALCULATED) > 59 mL/min/; GLUCOSE 89 mg/dL (70-99); POTASSIUM 4.1 MEQ/L (3.7-5.4); SAMPLE HEMOLYSIS CHECK 0; SAMPLE ICTERIC CHECK 0; SAMPLE LIPEMIA CHECK 0; SODIUM 139 MEQ/L (136-147); TOTAL BILIRUBIN 0.3 MG/DL (0.0-1.0); UREA NITROGEN (BUN) 4 mg/dL (9-23)
[2016-11-29 08:00] VITALS: BP 165/80
[2016-11-29 12:00] VITALS: BP 140/78
[2016-11-29 19:39] VITALS: BP 159/74
[2016-11-30] VITALS (7 sets, daily range): BP systolic 117–147; BP diastolic 51–79
[2016-11-30 06:46] LABS: HEMATOCRIT 38.6 % (36.0-46.0); MCH 28.2 PG (29.0-34.0); MCHC 31.9 G/DL (30.0-36.0); MCV 88.5 FL (83-99); MEAN PLAT.VOLUME 12.2 uM^3 (9.5-12.4); PLATELET COUNT 190 K/uL (156-360); RBC DIS.WIDTH-CV 13.7 % (11.8-14.6); RBC DIS.WIDTH-SD 43.7 % (39-53); RED BLOOD COUNT 4.36 M/uL (3.80-5.20); WHITE BLOOD COUNT 4.7 K/uL (4.1-10.2)
[2016-11-30 07:06] LABS: ALKALINE PHOSPHATASE 31 IU/L (3-129); ANION GAP 9 MEQ/L (2-14); CHLORIDE 103 MEQ/L (99-109); GFR ESTIMATE (CALCULATED) > 59 mL/min/; GLUCOSE 85 mg/dL (70-99); POTASSIUM 3.8 MEQ/L (3.7-5.4); SAMPLE HEMOLYSIS CHECK 0; SAMPLE ICTERIC CHECK 0; SAMPLE LIPEMIA CHECK 0; SODIUM 141 MEQ/L (136-147); TOTAL BILIRUBIN 0.3 MG/DL (0.0-1.0); UREA NITROGEN (BUN) 4 mg/dL (9-23)
[2016-11-30 23:10] LABS: POINT-OF-CARE METER ID UU14174225
[2016-12-01 03:48] VITALS: BP 114/68
[2016-12-01 07:29] VITALS: BP 166/76
[2016-12-01 07:45] LABS: HEMATOCRIT 35.5 % (36.0-46.0); MCH 29.4 PG (29.0-34.0); MCHC 33.2 G/DL (30.0-36.0); MCV 88.5 FL (83-99); MEAN PLAT.VOLUME 12.5 uM^3 (9.5-12.4); PLATELET COUNT 187 K/uL (156-360); RBC DIS.WIDTH-CV 13.8 % (11.8-14.6); RBC DIS.WIDTH-SD 44.7 % (39-53); RED BLOOD COUNT 4.01 M/uL (3.80-5.20); WHITE BLOOD COUNT 5.2 K/uL (4.1-10.2)
[2016-12-01 08:02] LABS: POINT-OF-CARE METER ID UU14174225
[2016-12-01 08:09] LABS: ALKALINE PHOSPHATASE 30 IU/L (3-129); ANION GAP 9 MEQ/L (2-14); CHLORIDE 101 MEQ/L (99-109); GFR ESTIMATE (CALCULATED) > 59 mL/min/; GLUCOSE 90 mg/dL (70-99); POTASSIUM 3.7 MEQ/L (3.7-5.4); SAMPLE HEMOLYSIS CHECK 0; SAMPLE ICTERIC CHECK 0; SAMPLE LIPEMIA CHECK 0; SODIUM 137 MEQ/L (136-147); TOTAL BILIRUBIN 0.3 MG/DL (0.0-1.0); UREA NITROGEN (BUN) 6 mg/dL (9-23)
[2016-12-01 11:10] VITALS: BP 148/72
[2016-12-01 15:13] VITALS: BP 122/68
[2016-12-01 20:00] VITALS: BP 122/66
[2016-12-01 21:00] VITALS: BP 126/65
[2016-12-02] VITALS (8 sets, daily range): BP systolic 101–138; BP diastolic 52–75
[2016-12-02 11:25] LABS: POINT-OF-CARE METER ID UU14174225
[2016-12-02 16:48] LABS: POINT-OF-CARE METER ID UU14174225
[2016-12-03 03:37] VITALS: BP 126/66
[2016-12-03 08:10] VITALS: BP 156/63
[2016-12-03 15:33] VITALS: BP 125/68
[2016-12-03 16:04] LABS: TROP-I INTERPRETATION NEGATIVE; TROPONIN-I < 0.01 ng/mL (0.0-0.30)
[2016-12-03 19:59] VITALS: BP 125/73
[2016-12-03 21:34] LABS: POINT-OF-CARE METER ID UU14174225
[2016-12-03 23:52] VITALS: BP 130/76
[2016-12-04 04:00] VITALS: BP 118/69
[2016-12-04 07:30] VITALS: BP 119/76
[2016-12-04 11:58] LABS: POINT-OF-CARE METER ID UU14174225
[2016-12-04 23:28] VITALS: BP 133/71
[2016-12-05 07:14] VITALS: BP 177/71
[2016-12-05] MEDS ORDERED: MECLIZINE HCL25 MG PO (09:52)
[2016-12-05] MEDS ORDERED: FAMOTIDINE40 MG PO (09:52)
[2016-12-05] MEDS ORDERED: ASPIR-LOW81 MG PO (09:52)
[2016-12-05 15:03] VITALS: BP 131/70
[2016-12-05 15:58] LABS: POINT-OF-CARE METER ID UU14188625
[2016-12-06] VITALS: BP 107/53
[2016-12-06 07:30] VITALS: BP 143/79
[2016-12-06 14:57] VITALS: BP 130/65
== END 2016-12-06 16:35 | DRG 689 ==
LOC: EME → EDBD 20:14 → EDOF 11-24 01:16 → 5WEST 11-24 02:32 → 5SOUTH 11-24 10:37 → 2EAST 11-24 10:37 → 5WEST 11-24 10:37 → 2EAST 11-24 21:46 → 5SOUTH 11-25 12:31
PROVIDERS: Hospitalist; Internal Medicine; Physician Assistant; Student in an Organized Health Care Education/Training Program
DX: N39.0 Urinary tract infection, site not specified (principal); I63.9 Cerebral infarction, unspecified; A04.7 Enterocolitis due to Clostridium difficile; R29.810 Facial weakness; R13.10 Dysphagia, unspecified; R55 Syncope and collapse; E86.0 Dehydration; E11.40 Type 2 diabetes mellitus with diabetic neuropathy, unspecified; I10 Essential (primary) hypertension; I25.10 Atherosclerotic heart disease of native coronary artery without angina pectoris; E87.6 Hypokalemia; E78.5 Hyperlipidemia, unspecified; K81.1 Chronic cholecystitis; F32.9 Major depressive disorder, single episode, unspecified; E66.9 Obesity, unspecified; Z87.891 Personal history of nicotine dependence; Z88.1 Allergy status to other antibiotic agents; Z79.82 Long term (current) use of aspirin; Z75.1 Person awaiting admission to adequate facility elsewhere; Z86.73 Personal history of transient ischemic attack (TIA), and cerebral infarction without residual deficits; Z68.28 Body mass index [BMI] 28.0-28.9, adult
CPT/HCPCS: 70450; 70551; 74177; 76705; 78227; 80048; 80053; 80061; 81003; 82948; 83036; 83690; 84484; 85025; 85027; 87040; 87077; 87086; 87186; 87493; 92507 GN; 92526 GN; 92610 GN; 93306; 97530 GO; 97530 GP; 99281; 99285; A9510; J0696; J0780; J1644; J1815; J2405; J2765; J2805; J3010; J3480; J7030; J7050; S0030

== ENCOUNTER 2017-01-25 12:48 | Emergency (ER) | payer OTHER ==
[~2017-01-25] VITALS: Ht 172.7 cm; Wt 84.5 kg
[~2017-01-25 12:48] MED LIST changes: +ASPIR-LOW81 MG PO; +DULCOLAX10 MG PR; +ENEMA133 M2 PR; +GABAPENTIN600 MG PO; +GLIPIZIDE10 MG PO; +METFORMIN HCL500 MG PO; +MILK OF MAGN PO; +NITROSTAT0.3 MG SL; +PRAVACHOL40 MG PO; +REMERON15 M2 PO; +TRANSDERM-SCO1 PATCH TD; +TYLENOL REGULA325 MG PO; +ZOFRAN4 MG PO
[2017-01-25 14:25] LABS: EOSINOPHIL (%) 1.8 % (0-5); EOSINOPHIL COUNT 0.2 K/uL (0-0.3); HEMATOCRIT 34.9 % (36.0-46.0); IMMATURE GRANULOCYTE (%) 0.8 % (0.0-0.7); IMMATURE GRANULOCYTE COUNT 0.1 K/uL; INSTRUMENT ABS NEUTROPHIL CT 6.5 K/uL; LYMPHOCYTE COUNT 1.5 K/uL (1.0-2.8); MCH 30.3 PG (29.0-34.0); MCV 91.8 FL (83-99); MONOCYTE (%) 5.1 % (3-12); MONOCYTE COUNT 0.5 K/uL (0-0.8); NEUTROPHIL (%) 74.6 % (45-76); NEUTROPHIL COUNT 6.5 K/uL (1.8-6.4); PLATELET COUNT 327 K/uL (156-360); RBC DIS.WIDTH-CV 14.8 % (11.8-14.6); RBC DIS.WIDTH-SD 49.4 % (39-53); WHITE BLOOD COUNT 8.8 K/uL (4.1-10.2)
[2017-01-25 14:35] LABS: CHLORIDE 101 mEq/L (99-109); POTASSIUM 3.3 mEq/L (3.7-5.4); SODIUM 141 mEq/L (136-147)
[2017-01-25 14:36] LABS: INTER. NORMALIZED RATIO 1.1; PROTHROMBIN TIME 11.5 (9.2-11.2); PTT 25.7 (25-32)
[2017-01-25 14:37] LABS: GLUCOSE 120 mg/dL (70-99)
[2017-01-25 14:38] LABS: ANION GAP 15 MEQ/L (2-14)
[2017-01-25 14:40] LABS: GFR ESTIMATE (CALCULATED) > 59 mL/min/
[2017-01-25 14:41] LABS: UREA NITROGEN (BUN) 12 mg/dL (9-23)
[2017-01-25 14:46] LABS: TROP-I INTERPRETATION NEGATIVE; TROPONIN-I < 0.01 ng/mL (0.0-0.30)
[2017-01-25 15:04] LABS: ADD MIUA? YES; BILIRUBIN NEGATIVE; BLOOD SMALL; COLOR AMBER ((YELLOW)); GLUCOSE (STRIP) NEGATIVE; KETONES 20; LEUKOCYTES SMALL; NITRITE POSITIVE; PROTEIN (STRIP) 30; SPECIFIC GRAVITY 1.023 (1.000-1.030); UROBILINOGEN 0.2 MG/DL (0.2-1.0)
[2017-01-25 15:18] LABS: EPITHELIAL CELLS 2+ /HPF
[2017-01-25 15:19] LABS: BACTERIA 4+ /HPF; CASTS NONE SEEN /LPF; MUCUS 2+ /LPF; RED BLOOD CELLS NONE SEEN /HPF (0-5); UCUL ADDED? YES; WHITE BLOOD CELLS 0-5 /HPF (0-5)
[2017-01-25] MEDS ORDERED: LEVAQUIN750 MG PO (15:59)
[2017-01-25 18:21] VITALS: BP 171/98
== END 2017-01-25 18:40 | disposition home or self-care (01) ==
LOC: EME 12:48
PROVIDERS: Emergency Medicine
DX: N39.0 Urinary tract infection, site not specified (principal); R42 Dizziness and giddiness; I10 Essential (primary) hypertension; E78.5 Hyperlipidemia, unspecified; E11.9 Type 2 diabetes mellitus without complications; Z79.4 Long term (current) use of insulin; Z90.710 Acquired absence of both cervix and uterus; Z87.891 Personal history of nicotine dependence
CPT/HCPCS: 70450; 71010; 80048; 81003; 84484; 85025; 85610; 85730; 87040; 87077; 87086; 87186; 93005; 99281; 99285; J0696; J2405; J7030; J7050

== ENCOUNTER 2017-03-22 14:59 | Observation (INO) | payer OTHER ==
[~2017-03-22] VITALS: Ht 172.7 cm; Wt 76.0 kg
[~2017-03-22 14:59] MED LIST changes: +LEVAQUIN750 MG PO
[2017-03-22 15:57] LABS: MCH 32.2 PG (29.0-34.0); MCV 97.6 FL (83-99); MEAN PLAT.VOLUME 10.5 uM^3 (9.5-12.4); PLATELET COUNT 326 K/uL (156-360); RBC DIS.WIDTH-CV 15.9 % (11.8-14.6); RBC DIS.WIDTH-SD 55.8 % (39-53); RED BLOOD COUNT 3.79 M/uL (3.80-5.20); WHITE BLOOD COUNT 8.7 K/uL (4.1-10.2)
[2017-03-22 16:08] LABS: CHLORIDE 103 mEq/L (99-109); POTASSIUM 3.6 mEq/L (3.7-5.4); SODIUM 141 mEq/L (136-147)
[2017-03-22 16:09] LABS: GLUCOSE 102 mg/dL (70-99)
[2017-03-22 16:13] LABS: ANION GAP 12 MEQ/L (2-14); GFR ESTIMATE (CALCULATED) > 59 mL/min/
[2017-03-22 16:14] LABS: UREA NITROGEN (BUN) 14 mg/dL (9-23)
[2017-03-22 16:32] LABS: TROP-I INTERPRETATION NEGATIVE; TROPONIN-I < 0.01 ng/mL (0.0-0.30)
[2017-03-22 17:32] LABS: ADD MIUA? YES; BILIRUBIN NEGATIVE; BLOOD LARGE; COLOR YELLOW ((YELLOW)); GLUCOSE (STRIP) NEGATIVE; KETONES 5; LEUKOCYTES LARGE; NITRITE NEGATIVE; PROTEIN (STRIP) 100; SPECIFIC GRAVITY 1.023 (1.000-1.030); UROBILINOGEN 0.2 MG/DL (0.2-1.0)
[2017-03-22 17:53] LABS: BACTERIA 2+ /HPF; CASTS NONE SEEN /LPF; CRYSTALS NONE SEEN; EPITHELIAL CELLS RARE /HPF; MUCUS NONE SEEN /LPF; RED BLOOD CELLS TNTC /HPF (0-5); UCUL ADDED? YES; WHITE BLOOD CELLS TNTC /HPF (0-5)
[2017-03-22] MEDS ORDERED: PROMETHAZINE HC25 M1 PO (18:32)
[2017-03-22] MEDS ORDERED: LO-DOSE ASPIRIN81 M2 PO (18:33)
[2017-03-22] MEDS ORDERED: GABAPENTIN300 MG PO (18:34)
[2017-03-22] MEDS ORDERED: MECLIZINE HCL25 MG PO (18:34)
[2017-03-22] MEDS ORDERED: METFORMIN HCL1000 MG PO (18:35)
[2017-03-22] MEDS ORDERED: NEXIUM40 MG PO (18:36)
[2017-03-22] MEDS ORDERED: AMMONIUM LACTA140 GM TP (18:36)
[2017-03-22] MEDS ORDERED: MOTRIN IB200 MG PO (18:36)
[2017-03-22] MEDS ORDERED: EXCEDRIN MIGRA1 EAC3 PO (18:36)
[2017-03-22] MEDS ORDERED: CRANBERRY500 M3 PO (18:36)
[2017-03-22 20:29] LABS: D-DIMER ELISA 0.63 mg/L FEU (< 0.57)
[2017-03-22 20:35] VITALS: BP 144/65
[2017-03-22 20:35] LABS: TOTAL BILIRUBIN 0.2 mg/dL (0.0-1.0)
[2017-03-22 20:36] LABS: ALKALINE PHOSPHATASE 39 IU/L (3-129)
[2017-03-22 20:39] LABS: DIRECT BILIRUBIN 0.1 mg/dL (0.0-0.3)
[2017-03-22 20:40] LABS: LIPASE 16 U/L (1.0-51.0)
[2017-03-22 23:54] LABS: POINT-OF-CARE METER ID UU13113831
[2017-03-23 00:02] LABS: TROP-I INTERPRETATION NEGATIVE; TROPONIN-I < 0.01 ng/mL (0.0-0.30)
[2017-03-23 00:22] VITALS: BP 136/71
[2017-03-23 04:53] VITALS: BP 151/66
[2017-03-23 06:14] LABS: MCH 32.3 PG (29.0-34.0); MCHC 33.2 G/DL (30.0-36.0); MCV 97.2 FL (83-99); MEAN PLAT.VOLUME 10.5 uM^3 (9.5-12.4); PLATELET COUNT 239 K/uL (156-360); RBC DIS.WIDTH-CV 15.9 % (11.8-14.6); RBC DIS.WIDTH-SD 55.8 % (39-53); RED BLOOD COUNT 3.19 M/uL (3.80-5.20); WHITE BLOOD COUNT 5.4 K/uL (4.1-10.2)
[2017-03-23 06:31] LABS: TROP-I INTERPRETATION NEGATIVE; TROPONIN-I < 0.01 ng/mL (0.0-0.30)
[2017-03-23 07:29] LABS: CHLORIDE 105 mEq/L (99-109); POTASSIUM 3.1 mEq/L (3.7-5.4); SODIUM 139 mEq/L (136-147)
[2017-03-23 07:30] LABS: GLUCOSE 74 mg/dL (70-99)
[2017-03-23 07:32] LABS: ANION GAP 9 MEQ/L (2-14)
[2017-03-23 07:34] LABS: GFR ESTIMATE (CALCULATED) > 59 mL/min/
[2017-03-23 07:35] LABS: UREA NITROGEN (BUN) 9 mg/dL (9-23)
[2017-03-23 08:15] LABS: POINT-OF-CARE METER ID UU13113700
[2017-03-23 09:05] VITALS: BP 143/73
[2017-03-23 11:37] VITALS: BP 166/80
[2017-03-23 12:13] LABS: POINT-OF-CARE METER ID UU13113700
[2017-03-23] MEDS ORDERED: AUGMENTIN875 MG PO (12:57)
== END 2017-03-23 13:52 | disposition home or self-care (01) ==
LOC: EME 14:59 → EDOF 19:20 → 5WEST 20:18
PROVIDERS: Hospitalist; Physician Assistant; Student in an Organized Health Care Education/Training Program
DX: R07.89 Other chest pain (principal); N39.0 Urinary tract infection, site not specified; E11.9 Type 2 diabetes mellitus without complications; F32.9 Major depressive disorder, single episode, unspecified; E78.00 Pure hypercholesterolemia, unspecified; I10 Essential (primary) hypertension; E78.5 Hyperlipidemia, unspecified; G47.30 Sleep apnea, unspecified; Z86.73 Personal history of transient ischemic attack (TIA), and cerebral infarction without residual deficits; Z86.19 Personal history of other infectious and parasitic diseases; Z87.440 Personal history of urinary (tract) infections; Z87.891 Personal history of nicotine dependence; R63.4 Abnormal weight loss; I25.10 Atherosclerotic heart disease of native coronary artery without angina pectoris; Z98.61 Coronary angioplasty status; Z88.1 Allergy status to other antibiotic agents; Z84.1 Family history of disorders of kidney and ureter; Z82.49 Family history of ischemic heart disease and other diseases of the circulatory system; Z83.3 Family history of diabetes mellitus
CPT/HCPCS: 71010; 71275; 74176; 80048; 80076; 81003; 82948; 83605; 83690; 84484; 85027; 85379; 87040; 87086; 93005; 99281; 99285; G0378; G8978 GP CK; J0696; J1650; J1885; J7030; J7050

== ENCOUNTER 2017-04-01 14:03 | Emergency (ER) | payer OTHER ==
[~2017-04-01] VITALS: Ht 175.3 cm; Wt 82.7 kg
[~2017-04-01 14:03] MED LIST changes: +AMMONIUM LACTA140 GM TP; +CRANBERRY500 M3 PO; +EXCEDRIN MIGRA1 EAC3 PO; +GABAPENTIN300 MG PO; +LO-DOSE ASPIRIN81 M2 PO; +MOTRIN IB200 MG PO; +PROMETHAZINE HC25 M1 PO
[2017-04-01 15:04] LABS: HEMATOCRIT 31.3 % (36.0-46.0); MCH 32.6 PG (29.0-34.0); MCHC 33.2 G/DL (30.0-36.0); MCV 98.1 FL (83-99); MEAN PLAT.VOLUME 10.9 uM^3 (9.5-12.4); PLATELET COUNT 243 K/uL (156-360); RBC DIS.WIDTH-CV 16.3 % (11.8-14.6); RBC DIS.WIDTH-SD 58.2 % (39-53); RED BLOOD COUNT 3.19 M/uL (3.80-5.20)
[2017-04-01 15:13] LABS: CHLORIDE 102 mEq/L (99-109); POTASSIUM 3.1 mEq/L (3.7-5.4); SODIUM 140 mEq/L (136-147)
[2017-04-01 15:15] LABS: GLUCOSE 123 mg/dL (70-99)
[2017-04-01 15:16] LABS: ANION GAP 11 MEQ/L (2-14)
[2017-04-01 15:19] LABS: GFR ESTIMATE (CALCULATED) > 59 mL/min/
[2017-04-01 15:20] LABS: UREA NITROGEN (BUN) 12 mg/dL (9-23)
[2017-04-01 16:18] LABS: ADD MIUA? YES; BILIRUBIN NEGATIVE; BLOOD NEGATIVE; COLOR YELLOW ((YELLOW)); GLUCOSE (STRIP) NEGATIVE; KETONES NEGATIVE; LEUKOCYTES LARGE; NITRITE NEGATIVE; PROTEIN (STRIP) NEGATIVE; SPECIFIC GRAVITY 1.014 (1.000-1.030); UROBILINOGEN 0.2 MG/DL (0.2-1.0)
[2017-04-01 16:57] LABS: RED BLOOD CELLS 0-5 /HPF (0-5)
[2017-04-01 16:58] LABS: BACTERIA 1+ /HPF; CASTS NONE SEEN /LPF; CRYSTALS NONE SEEN; EPITHELIAL CELLS RARE /HPF; MUCUS 3+ /LPF
[2017-04-01] MEDS ORDERED: BACTRIM,SEPT1 TABLET PO (19:41)
[2017-04-01 20:21] VITALS: BP 169/80
== END 2017-04-01 20:23 | disposition home or self-care (01) ==
LOC: EME → EDBD 14:03 → EME 14:03
PROVIDERS: Emergency Medicine
DX: N39.0 Urinary tract infection, site not specified (principal); I10 Essential (primary) hypertension; E11.9 Type 2 diabetes mellitus without complications; Z79.4 Long term (current) use of insulin; E78.5 Hyperlipidemia, unspecified; K21.9 Gastro-esophageal reflux disease without esophagitis; F32.9 Major depressive disorder, single episode, unspecified; Z86.73 Personal history of transient ischemic attack (TIA), and cerebral infarction without residual deficits; Z87.891 Personal history of nicotine dependence
CPT/HCPCS: 70450; 71020; 80048; 81003; 85027; 87086; 87106; 93005; 99281; 99285; J0696; J7030; J7050

== ENCOUNTER 2017-04-06 14:34 | Emergency (ER) | payer OTHER ==
[~2017-04-06] VITALS: Ht 172.7 cm; Wt 81.3 kg
[2017-04-06 18:09] VITALS: BP 125/110
== END 2017-04-06 18:10 | disposition home or self-care (01) ==
LOC: EME 14:34
PROC: 3E0234Z Introduction of Serum, Toxoid and Vaccine into Muscle, Percutaneous Approach (ICD-10-PCS; principal; 2017-04-06)
DX: S09.8XXA Other specified injuries of head, initial encounter (principal); S63.502A Unspecified sprain of left wrist, initial encounter; S30.0XXA Contusion of lower back and pelvis, initial encounter; S00.12XA Contusion of left eyelid and periocular area, initial encounter; V00.811A Fall from moving wheelchair (powered), initial encounter; Y92.480 Sidewalk as the place of occurrence of the external cause; Z23 Encounter for immunization; I10 Essential (primary) hypertension; E78.5 Hyperlipidemia, unspecified; E11.9 Type 2 diabetes mellitus without complications; Z79.4 Long term (current) use of insulin; Z79.82 Long term (current) use of aspirin; Z87.891 Personal history of nicotine dependence
CPT/HCPCS: 70450; 72100; 73110; 99281; 99283

== ENCOUNTER 2017-04-25 12:04 | Observation (INO) | payer OTHER ==
[~2017-04-25] VITALS: Ht 172.7 cm; Wt 74.8 kg
[2017-04-25 12:43] LABS: POINT-OF-CARE METER ID UU14100415
[2017-04-25 13:04] LABS: HEMATOCRIT 32.6 % (36.0-46.0); MCH 33.3 PG (29.0-34.0); MCHC 33.1 G/DL (30.0-36.0); MCV 100.6 FL (83-99); MEAN PLAT.VOLUME 10.8 uM^3 (9.5-12.4); RBC DIS.WIDTH-CV 16.4 % (11.8-14.6); RBC DIS.WIDTH-SD 60.1 % (39-53); RED BLOOD COUNT 3.24 M/uL (3.80-5.20); WHITE BLOOD COUNT 8.9 K/uL (4.1-10.2)
[2017-04-25 13:05] LABS: PLATELET COUNT 208 K/uL (156-360)
[2017-04-25 13:16] LABS: CHLORIDE 103 mEq/L (99-109); POTASSIUM 3.5 mEq/L (3.7-5.4); SODIUM 140 mEq/L (136-147)
[2017-04-25 13:18] LABS: GLUCOSE 109 mg/dL (70-99)
[2017-04-25 13:20] LABS: ANION GAP 16 MEQ/L (2-14); TOTAL BILIRUBIN 0.4 mg/dL (0.0-1.0)
[2017-04-25 13:22] LABS: ALKALINE PHOSPHATASE 41 IU/L (3-129); GFR ESTIMATE (CALCULATED) > 59 mL/min/
[2017-04-25 13:23] LABS: UREA NITROGEN (BUN) 15 mg/dL (9-23)
[2017-04-25 13:28] LABS: TROP-I INTERPRETATION NEGATIVE; TROPONIN-I 0.01 ng/mL (0.0-0.30)
[2017-04-25] MEDS ORDERED: EYE DROP TEARS15 ML BOTH EYES (14:31)
[2017-04-25] MEDS ORDERED: CIPRO250 MG PO (14:32)
[2017-04-25 15:59] VITALS: BP 138/21
[2017-04-25] MEDS ORDERED: [UNRECOGNIZED DRUG - REMARK] (16:54)
[2017-04-25 19:24] LABS: TROP-I INTERPRETATION NEGATIVE; TROPONIN-I < 0.01 ng/mL (0.0-0.30)
[2017-04-25 21:13] LABS: POINT-OF-CARE METER ID UU14162513
[2017-04-26] VITALS: BP 152/74
[2017-04-26 01:09] LABS: TROP-I INTERPRETATION NEGATIVE; TROPONIN-I < 0.01 ng/mL (0.0-0.30)
[2017-04-26 03:44] VITALS: BP 164/77
[2017-04-26 05:14] LABS: HEMATOCRIT 28.8 % (36.0-46.0); MCH 33.9 PG (29.0-34.0); MCV 99.7 FL (83-99); MEAN PLAT.VOLUME 10.7 uM^3 (9.5-12.4); PLATELET COUNT 196 K/uL (156-360); RBC DIS.WIDTH-CV 16.4 % (11.8-14.6); RBC DIS.WIDTH-SD 59.6 % (39-53); RED BLOOD COUNT 2.89 M/uL (3.80-5.20); WHITE BLOOD COUNT 5.8 K/uL (4.1-10.2)
[2017-04-26 05:40] LABS: ANION GAP 8 MEQ/L (2-14); CHLORIDE 101 MEQ/L (99-109); GFR ESTIMATE (CALCULATED) > 59 mL/min/; GLUCOSE 107 mg/dL (70-99); POTASSIUM 3.8 MEQ/L (3.7-5.4); SAMPLE HEMOLYSIS CHECK 0; SAMPLE ICTERIC CHECK 0; SAMPLE LIPEMIA CHECK 0; SODIUM 137 MEQ/L (136-147); UREA NITROGEN (BUN) 16 mg/dL (9-23)
[2017-04-26 08:23] LABS: POINT-OF-CARE METER ID UU13113700
[2017-04-26] MEDS ORDERED: NITROFURANTOIN50 MG PO (12:34)
[2017-04-26 13:14] VITALS: BP 140/68
[2017-04-26] MEDS ORDERED: MOTRIN IB200 MG PO (13:44)
[2017-04-26] MEDS ORDERED: TOPAMAX25 MG PO ×2 (13:46→13:50)
== END 2017-04-26 15:15 | disposition home or self-care (01) ==
LOC: EME 12:04 → EDOF 14:22 → 5WEST 14:22 → ENRESERV 14:29 → 5WEST 15:43 → ENPENDDIS 04-26 → 5WEST 04-26 15:15
PROVIDERS: Emergency Medicine; Student in an Organized Health Care Education/Training Program
DX: R51 Headache (principal); R47.81 Slurred speech; R47.01 Aphasia; R29.810 Facial weakness; R11.0 Nausea; R26.9 Unspecified abnormalities of gait and mobility; I69.351 Hemiplegia and hemiparesis following cerebral infarction affecting right dominant side; Z87.440 Personal history of urinary (tract) infections; Z86.19 Personal history of other infectious and parasitic diseases; I25.10 Atherosclerotic heart disease of native coronary artery without angina pectoris; I10 Essential (primary) hypertension; E78.5 Hyperlipidemia, unspecified; E11.9 Type 2 diabetes mellitus without complications; Z88.0 Allergy status to penicillin; Z88.1 Allergy status to other antibiotic agents; Z91.018 Allergy to other foods; Z79.4 Long term (current) use of insulin; Z79.84 Long term (current) use of oral hypoglycemic drugs; Z79.82 Long term (current) use of aspirin
CPT/HCPCS: 70450; 70551; 71010; 80048; 80053; 81003; 82948; 84484; 85027; 87040; 92610 GN; 93005; G0378; G8978 GP CJ; G8979 GP CI; G8987 GO CJ; G8988 CI; G8996 GN CI; G8997 GN CI; G8998 GN CI; J1644; J1885; J7042

== ENCOUNTER 2017-07-02 09:20 | Inpatient (IN) | payer OTHER ==
[~2017-07-02] VITALS: Ht 172.7 cm; Wt 68.7 kg
[~2017-07-02 09:20] MED LIST changes: +CARDIZEM30 MG PO; +CIPRO250 MG PO; +EYE DROP TEARS15 ML BOTH EYES; +NITROFURANTOIN50 MG PO; +TOPAMAX25 MG PO; +[UNRECOGNIZED DRUG - REMARK]
[2017-07-02 10:19] LABS: CHLORIDE 101 mEq/L (99-109); POTASSIUM 4.4 mEq/L (3.7-5.4); SODIUM 137 mEq/L (136-147)
[2017-07-02 10:22] LABS: GLUCOSE 149 mg/dL (70-99)
[2017-07-02 10:23] LABS: ANION GAP 12 MEQ/L (2-14)
[2017-07-02 10:24] LABS: TOTAL BILIRUBIN 0.4 mg/dL (0.0-1.0)
[2017-07-02 10:25] LABS: ALKALINE PHOSPHATASE 39 IU/L (3-129); GFR ESTIMATE (CALCULATED) > 59 mL/min/
[2017-07-02 10:27] LABS: HEMATOCRIT 31.7 % (36.0-46.0); MCH 37.8 PG (29.0-34.0); MCHC 34.1 G/DL (30.0-36.0); MCV 110.8 FL (83-99); MEAN PLAT.VOLUME 11.1 uM^3 (9.5-12.4); PLATELET COUNT 284 K/uL (156-360); RBC DIS.WIDTH-CV 14.5 % (11.8-14.6); RBC DIS.WIDTH-SD 59.4 % (39-53); RED BLOOD COUNT 2.86 M/uL (3.80-5.20); UREA NITROGEN (BUN) 24 mg/dL (9-23); WHITE BLOOD COUNT 8.1 K/uL (4.1-10.2)
[2017-07-02 10:29] LABS: LIPASE 13 U/L (1.0-51.0)
[2017-07-02 10:44] LABS: TROP-I INTERPRETATION NEGATIVE; TROPONIN-I < 0.01 ng/mL (0.0-0.30)
[2017-07-02 11:01] LABS: ANISOCYTOSIS 3+; EOSINOPHIL (%) 3.8 % (0-5); EOSINOPHIL COUNT 0.3 K/uL (0-0.3); IMMATURE GRANULOCYTE (%) 0.6 % (0.0-0.7); IMMATURE GRANULOCYTE COUNT 0.1 K/uL; INSTRUMENT ABS NEUTROPHIL CT 4.9 K/uL; LYMPHOCYTE COUNT 2.5 K/uL (1.0-2.8); MACROCYTES 3+; MONOCYTE (%) 4.2 % (3-12); MONOCYTE COUNT 0.3 K/uL (0-0.8); NEUTROPHIL (%) 60.1 % (45-76); NEUTROPHIL COUNT 4.9 K/uL (1.8-6.4)
[2017-07-02 13:22] LABS: ADD MIUA? YES; BILIRUBIN NEGATIVE; BLOOD MODERATE; COLOR YELLOW ((YELLOW)); GLUCOSE (STRIP) NEGATIVE; KETONES 5; LEUKOCYTES MODERATE; NITRITE POSITIVE; PROTEIN (STRIP) >=500; UROBILINOGEN 0.2 MG/DL (0.2-1.0)
[2017-07-02 13:43] LABS: WHITE BLOOD CELLS TNTC /HPF (0-5)
[2017-07-02 18:27] LABS: TROP-I INTERPRETATION NEGATIVE; TROPONIN-I < 0.01 ng/mL (0.0-0.30)
[2017-07-02 20:35] VITALS: BP 124/58
[2017-07-02] MEDS ORDERED: BACTRIM,SEPT1 TABLE1 PO (20:54)
[2017-07-02] MEDS ORDERED: AMITRIPTYLINE H10 MG PO (20:54)
[2017-07-02 21:19] LABS: TROP-I INTERPRETATION NEGATIVE; TROPONIN-I 0.01 ng/mL (0.0-0.30)
[2017-07-03] VITALS (7 sets, daily range): BP systolic 102–127; BP diastolic 55–73
[2017-07-03 06:45] LABS: POINT-OF-CARE METER ID UU14117124
[2017-07-03 07:20] LABS: HEMATOCRIT 27.9 % (36.0-46.0); MCH 38.8 PG (29.0-34.0); MCHC 34.8 G/DL (30.0-36.0); MCV 111.6 FL (83-99); MEAN PLAT.VOLUME 11.2 uM^3 (9.5-12.4); PLAT.SUFFICIENCY ADEQUATE; PLATELET COUNT 277 K/uL (156-360); RBC DIS.WIDTH-CV 14.3 % (11.8-14.6); WHITE BLOOD COUNT 5.8 K/uL (4.1-10.2)
[2017-07-03 07:21] LABS: ANION GAP 9 MEQ/L (2-14); CHLORIDE 103 MEQ/L (99-109); GFR ESTIMATE (CALCULATED) > 59 mL/min/; POTASSIUM 4.5 MEQ/L (3.7-5.4); SAMPLE HEMOLYSIS CHECK 0; SAMPLE ICTERIC CHECK 0; SAMPLE LIPEMIA CHECK 0; SODIUM 138 MEQ/L (136-147); UREA NITROGEN (BUN) 21 mg/dL (9-23)
[2017-07-03 07:24] LABS: GLUCOSE 70 mg/dL (70-99)
[2017-07-03 11:32] LABS: POINT-OF-CARE METER ID UU14117124
[2017-07-03 16:57] LABS: POINT-OF-CARE METER ID UU14117124
[2017-07-03 21:50] LABS: POINT-OF-CARE METER ID UU14117124
[2017-07-04 04:08] VITALS: BP 115/62
[2017-07-04 06:56] LABS: HEMATOCRIT 25.6 % (36.0-46.0); MCH 38.9 PG (29.0-34.0); MCHC 34.8 G/DL (30.0-36.0); MCV 111.8 FL (83-99); MEAN PLAT.VOLUME 11.2 uM^3 (9.5-12.4); PLATELET COUNT 235 K/uL (156-360); RBC DIS.WIDTH-CV 14.4 % (11.8-14.6); RBC DIS.WIDTH-SD 59.2 % (39-53); RED BLOOD COUNT 2.29 M/uL (3.80-5.20)
[2017-07-04 06:58] LABS: POINT-OF-CARE METER ID UU14188577
[2017-07-04 07:26] LABS: ANION GAP 10 MEQ/L (2-14); CHLORIDE 104 MEQ/L (99-109); POTASSIUM 4.4 MEQ/L (3.7-5.4); SAMPLE HEMOLYSIS CHECK 0; SAMPLE ICTERIC CHECK 0; SAMPLE LIPEMIA CHECK 0; SODIUM 138 MEQ/L (136-147)
[2017-07-04 07:32] LABS: GFR ESTIMATE (CALCULATED) > 59 mL/min/; GLUCOSE 72 mg/dL (70-99); UREA NITROGEN (BUN) 14 mg/dL (9-23)
[2017-07-04 08:32] VITALS: BP 172/78
[2017-07-04 11:26] VITALS: BP 141/75
[2017-07-04 12:14] LABS: POINT-OF-CARE METER ID UU14188577
[2017-07-04 13:04] LABS: POINT-OF-CARE METER ID UU14107333
[2017-07-04 15:48] VITALS: BP 105/60
[2017-07-04 16:45] LABS: POINT-OF-CARE METER ID UU14117124
[2017-07-04 19:57] VITALS: BP 119/60
[2017-07-04 21:22] LABS: POINT-OF-CARE METER ID UU14188577
[2017-07-04 23:32] VITALS: BP 123/66
[2017-07-05 03:49] VITALS: BP 123/74
[2017-07-05 06:12] LABS: POINT-OF-CARE METER ID UU14208753
[2017-07-05 06:16] LABS: MCH 37.6 PG (29.0-34.0); MCHC 33.8 G/DL (30.0-36.0); MCV 111.1 FL (83-99); MEAN PLAT.VOLUME 10.9 uM^3 (9.5-12.4); PLATELET COUNT 238 K/uL (156-360); RBC DIS.WIDTH-CV 14.3 % (11.8-14.6); RBC DIS.WIDTH-SD 58.4 % (39-53); RED BLOOD COUNT 2.34 M/uL (3.80-5.20); WHITE BLOOD COUNT 5.2 K/uL (4.1-10.2)
[2017-07-05 06:37] LABS: ANION GAP 6 MEQ/L (2-14); CHLORIDE 103 MEQ/L (99-109); GFR ESTIMATE (CALCULATED) > 59 mL/min/; GLUCOSE 74 mg/dL (70-99); POTASSIUM 3.9 MEQ/L (3.7-5.4); SAMPLE HEMOLYSIS CHECK 0; SAMPLE ICTERIC CHECK 0; SAMPLE LIPEMIA CHECK 0; SODIUM 135 MEQ/L (136-147); UREA NITROGEN (BUN) 9 mg/dL (9-23)
[2017-07-05] MEDS ORDERED: BACTRIM,SEPT1 TABLE1 PO (07:34)
[2017-07-05] MEDS ORDERED: ZANTAC300 MG PO (07:35)
[2017-07-05] MEDS ORDERED: PANTOPRAZOLE SO40 MG PO (07:36)
[2017-07-05 07:45] VITALS: BP 159/77
[2017-07-05 11:15] VITALS: BP 146/68
[2017-07-05 11:37] LABS: POINT-OF-CARE METER ID UU14188577
== END 2017-07-05 14:10 | disposition home health service (06) | DRG 392 ==
LOC: EME 09:20 → EDOF 16:54 → 3EAST 16:54 → ENRESERV 17:04 → 3EAST 19:07
PROVIDERS: Emergency Medicine; Internal Medicine
PROC: 0DJ08ZZ Inspection of Upper Intestinal Tract, Via Natural or Artificial Opening Endoscopic (ICD-10-PCS; principal; 2017-07-04)
DX: R13.10 Dysphagia, unspecified (principal); K22.10 Ulcer of esophagus without bleeding; K20.9 Esophagitis, unspecified; N39.0 Urinary tract infection, site not specified; B95.2 Enterococcus as the cause of diseases classified elsewhere; E86.0 Dehydration; I10 Essential (primary) hypertension; E11.9 Type 2 diabetes mellitus without complications; E78.00 Pure hypercholesterolemia, unspecified; I25.10 Atherosclerotic heart disease of native coronary artery without angina pectoris; K21.0 Gastro-esophageal reflux disease with esophagitis; K44.9 Diaphragmatic hernia without obstruction or gangrene; K59.00 Constipation, unspecified; F32.9 Major depressive disorder, single episode, unspecified; G40.909 Epilepsy, unspecified, not intractable, without status epilepticus; I69.351 Hemiplegia and hemiparesis following cerebral infarction affecting right dominant side; Z79.4 Long term (current) use of insulin; Z79.82 Long term (current) use of aspirin; Z87.440 Personal history of urinary (tract) infections; Z82.49 Family history of ischemic heart disease and other diseases of the circulatory system
CPT/HCPCS: 71020; 74220; 76705; 80048; 80053; 81003; 82948; 83690; 84484; 85025; 85027; 87077; 87086; 87186; 92610 GN; 93005; 94799; 99281; 99285; C9113; J0290; J0696; J1650; J1815; J2250; J2405; J3010; J7030; J7040; J7050

== ENCOUNTER 2017-07-08 11:48 | Emergency (ER) | payer OTHER ==
[~2017-07-08] VITALS: Ht 172.7 cm; Wt 71.0 kg
[~2017-07-08 11:48] MED LIST changes: +AMITRIPTYLINE H10 MG PO; +BACTRIM,SEPT1 TABLE1 PO; +PANTOPRAZOLE SO40 MG PO; +ZANTAC300 MG PO
[2017-07-08 13:10] LABS: HEMATOCRIT 32.4 % (36.0-46.0); MCH 37.3 PG (29.0-34.0); MCHC 33.6 G/DL (30.0-36.0); RBC DIS.WIDTH-CV 13.8 % (11.8-14.6); RBC DIS.WIDTH-SD 57.2 % (39-53)
[2017-07-08 13:11] LABS: PLATELET COUNT 322 K/uL (156-360); RED BLOOD COUNT 2.92 M/uL (3.80-5.20)
[2017-07-08 13:19] LABS: CHLORIDE 103 mEq/L (99-109); POTASSIUM 3.8 mEq/L (3.7-5.4); SODIUM 140 mEq/L (136-147)
[2017-07-08 13:21] LABS: GLUCOSE 90 mg/dL (70-99)
[2017-07-08 13:23] LABS: ANION GAP 14 MEQ/L (2-14)
[2017-07-08 13:25] LABS: GFR ESTIMATE (CALCULATED) > 59 mL/min/
[2017-07-08 13:26] LABS: UREA NITROGEN (BUN) 10 mg/dL (9-23)
[2017-07-08] MEDS ORDERED: TRAMADOL HCL50 MG PO (14:30)
[2017-07-08 14:38] VITALS: BP 130/99
== END 2017-07-08 14:40 | disposition home or self-care (01) ==
LOC: EME 11:48
DX: S46.912A Strain of unspecified muscle, fascia and tendon at shoulder and upper arm level, left arm, initial encounter (principal); S96.912A Strain of unspecified muscle and tendon at ankle and foot level, left foot, initial encounter; D64.9 Anemia, unspecified; W18.30XA Fall on same level, unspecified, initial encounter; E78.5 Hyperlipidemia, unspecified; K21.9 Gastro-esophageal reflux disease without esophagitis; E11.9 Type 2 diabetes mellitus without complications; Z79.84 Long term (current) use of oral hypoglycemic drugs; Z86.73 Personal history of transient ischemic attack (TIA), and cerebral infarction without residual deficits; Z79.82 Long term (current) use of aspirin; Z87.891 Personal history of nicotine dependence
CPT/HCPCS: 73030; 80048; 85027; 93005; 99281; 99283

== ENCOUNTER 2017-10-14 12:46 | Inpatient (IN) | payer OTHER ==
[~2017-10-14] VITALS: Ht 175.3 cm; Wt 73.7 kg
[~2017-10-14 12:46] MED LIST changes: +TRAMADOL HCL50 MG PO
[2017-10-14 13:34] LABS: BASOPHIL (%) 0.6 % (0-1); BASOPHIL COUNT 0.1 K/uL (0-0.1); EOSINOPHIL (%) 3.9 % (0-5); EOSINOPHIL COUNT 0.4 K/uL (0-0.3); HEMATOCRIT 34.6 % (36.0-46.0); HEMOGLOBIN 11.1 G/DL (11.9-15.5); IMMATURE GRANULOCYTE (%) 0.7 % (0.0-0.7); LYMPHOCYTE (%) 26.6 % (15-42); LYMPHOCYTE COUNT 2.8 K/uL (1.0-2.8); MCH 30.8 PG (29.0-34.0); MCHC 32.1 G/DL (30.0-36.0); MCV 96.1 FL (83-99); MONOCYTE COUNT 0.5 K/uL (0-0.8); NEUTROPHIL (%) 63.2 % (45-76); NEUTROPHIL COUNT 6.7 K/uL (1.8-6.4); PLATELET COUNT 273 K/uL (156-360); RBC DIS.WIDTH-CV 12.9 % (11.8-14.6); RBC DIS.WIDTH-SD 45.1 % (39-53); WHITE BLOOD COUNT 10.6 K/uL (4.1-10.2)
[2017-10-14 13:42] LABS: CHLORIDE 102 mEq/L (99-109); POTASSIUM 4.2 mEq/L (3.7-5.4); SODIUM 140 mEq/L (136-147)
[2017-10-14 13:43] LABS: CHLORIDE 102 mEq/L (99-109); POTASSIUM 4.3 mEq/L (3.7-5.4); SODIUM 140 mEq/L (136-147)
[2017-10-14 13:44] LABS: AMYLASE 26 IU/L (1-118); GLUCOSE 112 mg/dL (70-99)
[2017-10-14 13:45] LABS: PTT 28.5 SEC (25-37)
[2017-10-14 13:46] LABS: GLUCOSE 112 mg/dL (70-99); TOTAL PROTEIN 7.1 g/dL (6.4-8.3)
[2017-10-14 13:48] LABS: CREATININE 1.1 mg/dL (0.6-1.3); GFR ESTIMATE (CALCULATED) 53 mL/min/; TOTAL BILIRUBIN 0.2 mg/dL (0.0-1.0)
[2017-10-14 13:49] LABS: ALKALINE PHOSPHATASE 48 IU/L (3-129); SERUM ETHYL ALCOHOL < 10 mg/dL; UREA NITROGEN (BUN) 26 mg/dL (9-23)
[2017-10-14 13:50] LABS: CREATININE 1.1 mg/dL (0.6-1.3); GFR ESTIMATE (CALCULATED) 53 mL/min/
[2017-10-14 13:51] LABS: AST (GOT) 13 IU/L (2-34); DIRECT BILIRUBIN 0.1 mg/dL (0.0-0.3); UREA NITROGEN (BUN) 26 mg/dL (9-23)
[2017-10-14 13:52] LABS: ALT (GPT) 15 IU/L (3-49)
[2017-10-14 13:53] LABS: LIPASE 24 U/L (1.0-51.0)
[2017-10-14 13:59] LABS: TROP-I INTERPRETATION NEGATIVE; TROPONIN-I < 0.01 ng/mL (0.0-0.30)
[2017-10-14 14:09] LABS: APPEARANCE CLOUDY ((CLEAR)); BILIRUBIN NEGATIVE; BLOOD SMALL; COLOR AMBER ((YELLOW)); GLUCOSE (STRIP) NEGATIVE; KETONES NEGATIVE; LEUKOCYTES NEGATIVE; NITRITE NEGATIVE; PROTEIN (STRIP) 100; SPECIFIC GRAVITY 1.018 (1.000-1.030); UROBILINOGEN 0.2 MG/DL (0.2-1.0)
[2017-10-14 14:29] LABS: COCAINE NEGATIVE (150 ng/mL); METHAMPHETAMINE NEGATIVE (500 ng/mL); OPIATES (MORPHINE) PRESUMPTIVE POSITIVE (100 ng/mL); PHENCYCLIDINE NEGATIVE (25 ng/mL); THC CANNABINOIDS NEGATIVE (50 ng/mL)
[2017-10-14 14:30] LABS: AMPHETAMINE NEGATIVE (500 ng/mL); BARBITURATES PRESUMPTIVE POSITIVE (200 ng/mL); BENZODIAZEPINES PRESUMPTIVE POSITIVE (150 ng/mL); BUPRENORPHINE NEGATIVE (10 ng/mL); METHADONE NEGATIVE (200 ng/mL); OXYCODONE NEGATIVE (100 ng/mL); PROPOXYPHENE NEGATIVE (300 ng/mL); TRICYCLIC ANTIDEPRESSANTS PRESUMPTIVE POSITIVE (300 ng/mL)
[2017-10-14 14:35] LABS: RED BLOOD CELLS 0-5 /HPF (0-5)
[2017-10-14 14:36] LABS: BACTERIA 3+ /HPF; EPITHELIAL CELLS RARE /HPF; MUCUS NONE SEEN /LPF; UCUL ADDED? YES
[2017-10-14 14:41] LABS: C DIFF TOXIN POSITIVE (NEGATIVE)
[2017-10-14 16:12] LABS: BENZODIAZEPINES, URINE SCREEN Negative (200 ng/mL)
[2017-10-14] MEDS ORDERED: REQUIP0.25 MG PO (18:16)
[2017-10-14] MEDS ORDERED: INCRUSE ELLI62.5 MCG IH (18:18)
[2017-10-14] MEDS ORDERED: ARNUITY ELLIP100 MCG IH (18:18)
[2017-10-14] MEDS ORDERED: SINGULAIR10 MG PO (18:19)
[2017-10-14] MEDS ORDERED: PANTOPRAZOLE SO40 MG PO (18:22)
[2017-10-15 07:20] LABS: HEMATOCRIT 30.5 % (36.0-46.0); MCH 30.7 PG (29.0-34.0); MCHC 32.8 G/DL (30.0-36.0); MCV 93.6 FL (83-99); PLATELET COUNT 214 K/uL (156-360); RBC DIS.WIDTH-CV 12.9 % (11.8-14.6); RBC DIS.WIDTH-SD 44.2 % (39-53); RED BLOOD COUNT 3.26 M/uL (3.80-5.20); WHITE BLOOD COUNT 7.4 K/uL (4.1-10.2)
[2017-10-15 07:32] LABS: CHLORIDE 104 mEq/L (99-109); POTASSIUM 4.1 mEq/L (3.7-5.4); SODIUM 140 mEq/L (136-147)
[2017-10-15 07:37] LABS: CREATININE 0.7 mg/dL (0.6-1.3); GFR ESTIMATE (CALCULATED) > 59 mL/min/
[2017-10-15 07:38] LABS: GLUCOSE 80 mg/dL (70-99); UREA NITROGEN (BUN) 16 mg/dL (9-23)
[2017-10-15 13:55] VITALS: BP 137/87
[2017-10-15 14:53] VITALS: BP 137/87
[2017-10-15 19:10] VITALS: BP 145/76
[2017-10-16] VITALS (7 sets, daily range): BP systolic 120–154; BP diastolic 72–85
[2017-10-16 07:16] LABS: HEMATOCRIT 29.3 % (36.0-46.0); HEMOGLOBIN 9.8 G/DL (11.9-15.5); MCH 31.2 PG (29.0-34.0); MCHC 33.4 G/DL (30.0-36.0); MCV 93.3 FL (83-99); PLATELET COUNT 203 K/uL (156-360); RBC DIS.WIDTH-SD 44.1 % (39-53); RED BLOOD COUNT 3.14 M/uL (3.80-5.20); WHITE BLOOD COUNT 5.9 K/uL (4.1-10.2)
[2017-10-16 07:44] LABS: ALBUMIN 3.5 G/DL (3.2-4.8); ALKALINE PHOSPHATASE 38 IU/L (3-129); ALT (GPT) 9 IU/L (3-49); AST (GOT) 10 IU/L (2-34); CHLORIDE 100 MEQ/L (99-109); CREATININE 0.7 MG/DL (0.6-1.3); GFR ESTIMATE (CALCULATED) > 59 mL/min/; POTASSIUM 4.3 MEQ/L (3.7-5.4); SODIUM 136 MEQ/L (136-147); TOTAL BILIRUBIN 0.4 MG/DL (0.0-1.0); TOTAL PROTEIN 6.3 G/DL (6.4-8.3); UREA NITROGEN (BUN) 16 mg/dL (9-23)
[2017-10-16 07:47] LABS: GLUCOSE 102 mg/dL (70-99)
[2017-10-17 02:42] VITALS: BP 124/72
[2017-10-17] MEDS ORDERED: METRONIDAZOLE500 MG PO (05:21)
[2017-10-17 08:09] LABS: ALBUMIN 3.4 G/DL (3.2-4.8); ALKALINE PHOSPHATASE 34 IU/L (3-129); ALT (GPT) 10 IU/L (3-49); AST (GOT) 12 IU/L (2-34); CHLORIDE 100 MEQ/L (99-109); CREATININE 0.8 MG/DL (0.6-1.3); GFR ESTIMATE (CALCULATED) > 59 mL/min/; GLUCOSE 118 mg/dL (70-99); POTASSIUM 4.2 MEQ/L (3.7-5.4); SODIUM 136 MEQ/L (136-147); TOTAL PROTEIN 6.1 G/DL (6.4-8.3); UREA NITROGEN (BUN) 19 mg/dL (9-23)
[2017-10-17 08:10] LABS: TOTAL BILIRUBIN 0.3 MG/DL (0.0-1.0)
[2017-10-17 11:18] LABS: HEMATOCRIT 28.8 % (36.0-46.0); HEMOGLOBIN 9.4 G/DL (11.9-15.5); MCH 30.5 PG (29.0-34.0); MCHC 32.6 G/DL (30.0-36.0); MCV 93.5 FL (83-99); PLATELET COUNT 207 K/uL (156-360); RBC DIS.WIDTH-CV 12.8 % (11.8-14.6); RBC DIS.WIDTH-SD 44.1 % (39-53); RED BLOOD COUNT 3.08 M/uL (3.80-5.20); WHITE BLOOD COUNT 5.4 K/uL (4.1-10.2)
== END 2017-10-17 14:23 | disposition home or self-care (01) | DRG 372 ==
LOC: EME 12:46 → EDOF 15:43 → 4EAST 15:43 → ENRESERV 15:44 → 4EAST 10-15 13:42
PROVIDERS: Emergency Medicine; Internal Medicine; Student in an Organized Health Care Education/Training Program
DX: A04.71 Enterocolitis due to Clostridium difficile, recurrent (principal); I69.351 Hemiplegia and hemiparesis following cerebral infarction affecting right dominant side; E86.0 Dehydration; R82.71 Bacteriuria; I10 Essential (primary) hypertension; E11.9 Type 2 diabetes mellitus without complications; R32 Unspecified urinary incontinence; E78.5 Hyperlipidemia, unspecified; I25.10 Atherosclerotic heart disease of native coronary artery without angina pectoris; K21.9 Gastro-esophageal reflux disease without esophagitis; G43.909 Migraine, unspecified, not intractable, without status migrainosus; R25.1 Tremor, unspecified; Z87.440 Personal history of urinary (tract) infections; Z79.2 Long term (current) use of antibiotics; Z87.891 Personal history of nicotine dependence; Z79.4 Long term (current) use of insulin; Z79.82 Long term (current) use of aspirin; Z90.710 Acquired absence of both cervix and uterus; Z99.3 Dependence on wheelchair; Z82.49 Family history of ischemic heart disease and other diseases of the circulatory system
CPT/HCPCS: 70450; 70496; 70498; 71046; 80048; 80048 91; 80053; 80076; 81003; 82150; 82948; 83605; 83630; 83690; 84484; 84999; 85025; 85027; 85610; 85730; 86850; 86900; 86901; 87040; 87077; 87086; 87186; 87493; 87506; 93005; 93880; 94640; 94640 76; 99281; 99284; G0480; J0696; J1650; J1815; J7120; S0030

== ENCOUNTER 2017-12-20 11:46 | Emergency (ER) | payer OTHER ==
[~2017-12-20] VITALS: Ht 172.7 cm; Wt 78.3 kg
[~2017-12-20 11:46] MED LIST changes: +ARNUITY ELLIP100 MCG IH; +INCRUSE ELLI62.5 MCG IH; +REQUIP0.25 MG PO; +SINGULAIR10 MG PO
[2017-12-20] MEDS ORDERED: FLEXERIL10 MG PO (15:06)
[2017-12-20 15:37] VITALS: BP 105/61
== END 2017-12-20 15:38 | disposition home or self-care (01) ==
LOC: EME 11:46
DX: S00.83XA Contusion of other part of head, initial encounter (principal); S00.31XA Abrasion of nose, initial encounter; S80.212A Abrasion, left knee, initial encounter; M25.562 Pain in left knee; W05.0XXA Fall from non-moving wheelchair, initial encounter; J32.9 Chronic sinusitis, unspecified; Z79.82 Long term (current) use of aspirin; E11.9 Type 2 diabetes mellitus without complications; Z79.4 Long term (current) use of insulin; E78.5 Hyperlipidemia, unspecified; I10 Essential (primary) hypertension; K21.9 Gastro-esophageal reflux disease without esophagitis; Z95.5 Presence of coronary angioplasty implant and graft; F32.9 Major depressive disorder, single episode, unspecified; F41.9 Anxiety disorder, unspecified; Z86.73 Personal history of transient ischemic attack (TIA), and cerebral infarction without residual deficits; R56.9 Unspecified convulsions; Z87.891 Personal history of nicotine dependence
CPT/HCPCS: 70450; 70486; 73030; 73564; 99281; 99284; J1885

== ENCOUNTER 2018-01-23 12:44 | Observation (INO) | payer OTHER ==
[~2018-01-23] VITALS: Ht 172.7 cm; Wt 82.2 kg
[~2018-01-23 12:44] MED LIST changes: +FLEXERIL10 MG PO; -PROMETHAZINE HC25 M1 PO
[2018-01-23 13:49] LABS: BASOPHIL (%) 0.7 % (0-1); BASOPHIL COUNT 0.1 K/uL (0-0.1); EOSINOPHIL (%) 3.7 % (0-5); EOSINOPHIL COUNT 0.3 K/uL (0-0.3); HEMATOCRIT 30.1 % (36.0-46.0); IMMATURE GRANULOCYTE (%) 0.8 % (0.0-0.7); LYMPHOCYTE (%) 26.9 % (15-42); LYMPHOCYTE COUNT 2.1 K/uL (1.0-2.8); MCH 30.2 PG (29.0-34.0); MCHC 33.2 G/DL (30.0-36.0); MCV 90.9 FL (83-99); MONOCYTE (%) 5.3 % (3-12); MONOCYTE COUNT 0.4 K/uL (0-0.8); NEUTROPHIL (%) 62.6 % (45-76); NEUTROPHIL COUNT 4.8 K/uL (1.8-6.4); PLATELET COUNT 210 K/uL (156-360); RBC DIS.WIDTH-CV 13.7 % (11.8-14.6); RBC DIS.WIDTH-SD 44.6 % (39-53); RED BLOOD COUNT 3.31 M/uL (3.80-5.20); WHITE BLOOD COUNT 7.7 K/uL (4.1-10.2)
[2018-01-23 14:10] LABS: CHLORIDE 102 MEQ/L (99-109); SODIUM 137 MEQ/L (136-147)
[2018-01-23 14:11] LABS: TROP-I INTERPRETATION NEGATIVE; TROPONIN-I < 0.01 ng/mL (0.0-0.30)
[2018-01-23 14:15] LABS: CREATININE 0.9 MG/DL (0.6-1.3); GFR ESTIMATE (CALCULATED) > 59 mL/min/; GLUCOSE 134 mg/dL (70-99); UREA NITROGEN (BUN) 23 mg/dL (9-23)
[2018-01-23] MEDS ORDERED: BACTRIM,SEPT1 TABLE1 PO (16:09)
[2018-01-23 19:51] VITALS: BP 156/75
[2018-01-23 23:33] VITALS: BP 147/71
[2018-01-24] VITALS (7 sets, daily range): BP systolic 130–185; BP diastolic 69–96
[2018-01-24 06:25] LABS: BASOPHIL (%) 0.7 % (0-1); EOSINOPHIL COUNT 0.3 K/uL (0-0.3); HEMATOCRIT 29.2 % (36.0-46.0); HEMOGLOBIN 9.4 G/DL (11.9-15.5); IMMATURE GRANULOCYTE (%) 0.8 % (0.0-0.7); LYMPHOCYTE (%) 34.5 % (15-42); LYMPHOCYTE COUNT 2.1 K/uL (1.0-2.8); MCH 29.4 PG (29.0-34.0); MCHC 32.2 G/DL (30.0-36.0); MCV 91.3 FL (83-99); MONOCYTE (%) 5.7 % (3-12); MONOCYTE COUNT 0.4 K/uL (0-0.8); NEUTROPHIL (%) 53.3 % (45-76); NEUTROPHIL COUNT 3.3 K/uL (1.8-6.4); PLATELET COUNT 200 K/uL (156-360); RBC DIS.WIDTH-CV 13.5 % (11.8-14.6); RBC DIS.WIDTH-SD 44.6 % (39-53); WHITE BLOOD COUNT 6.2 K/uL (4.1-10.2)
[2018-01-24 06:44] LABS: ALBUMIN 3.3 G/DL (3.2-4.8); ALKALINE PHOSPHATASE 38 IU/L (3-129); ALT (GPT) 12 IU/L (3-49); AST (GOT) 16 IU/L (2-34); CHLORIDE 103 MEQ/L (99-109); CREATININE 0.7 MG/DL (0.6-1.3); DIRECT BILIRUBIN 0.1 mg/dL (0.0-0.3); GFR ESTIMATE (CALCULATED) > 59 mL/min/; GLUCOSE 89 mg/dL (70-99); POTASSIUM 4.2 MEQ/L (3.7-5.4); SODIUM 137 MEQ/L (136-147); TOTAL BILIRUBIN 0.3 MG/DL (0.0-1.0); TOTAL PROTEIN 5.8 G/DL (6.4-8.3); UREA NITROGEN (BUN) 17 mg/dL (9-23)
[2018-01-24 13:32] LABS: THYROTROPIN (TSH) 1.5 MIU/L (0.4-5.5)
[2018-01-24 16:18] LABS: APPEARANCE CLOUDY ((CLEAR)); BILIRUBIN NEGATIVE; BLOOD MODERATE; COLOR YELLOW ((YELLOW)); GLUCOSE (STRIP) NEGATIVE; KETONES NEGATIVE; LEUKOCYTES LARGE; NITRITE POSITIVE; PROTEIN (STRIP) NEGATIVE; SPECIFIC GRAVITY 1.011 (1.000-1.030); UROBILINOGEN 0.2 MG/DL (0.2-1.0)
[2018-01-24 17:11] LABS: BACTERIA 2+ /HPF; EPITHELIAL CELLS 2+ /HPF; MUCUS 3+ /LPF; WHITE BLOOD CELLS TNTC /HPF (0-5)
[2018-01-25] VITALS (8 sets, daily range): BP systolic 135–194; BP diastolic 56–86
[2018-01-25 06:45] LABS: HEMATOCRIT 28.4 % (36.0-46.0); HEMOGLOBIN 9.2 G/DL (11.9-15.5); MCH 29.3 PG (29.0-34.0); MCHC 32.4 G/DL (30.0-36.0); MCV 90.4 FL (83-99); PLATELET COUNT 200 K/uL (156-360); RBC DIS.WIDTH-CV 13.6 % (11.8-14.6); RBC DIS.WIDTH-SD 44.7 % (39-53); RED BLOOD COUNT 3.14 M/uL (3.80-5.20); WHITE BLOOD COUNT 5.6 K/uL (4.1-10.2)
[2018-01-25 07:08] LABS: CHLORIDE 104 MEQ/L (99-109); CREATININE 0.6 MG/DL (0.6-1.3); GFR ESTIMATE (CALCULATED) > 59 mL/min/; GLUCOSE 87 mg/dL (70-99); POTASSIUM 4.1 MEQ/L (3.7-5.4); SODIUM 137 MEQ/L (136-147); UREA NITROGEN (BUN) 17 mg/dL (9-23)
[2018-01-26 00:44] VITALS: BP 179/82
[2018-01-26 04:07] VITALS: BP 165/76
[2018-01-26 06:38] LABS: BASOPHIL (%) 0.7 % (0-1); BASOPHIL COUNT 0.1 K/uL (0-0.1); EOSINOPHIL (%) 3.6 % (0-5); EOSINOPHIL COUNT 0.3 K/uL (0-0.3); HEMATOCRIT 30.7 % (36.0-46.0); IMMATURE GRANULOCYTE (%) 0.4 % (0.0-0.7); LYMPHOCYTE (%) 26.2 % (15-42); LYMPHOCYTE COUNT 1.8 K/uL (1.0-2.8); MCH 29.1 PG (29.0-34.0); MCHC 32.6 G/DL (30.0-36.0); MCV 89.2 FL (83-99); MONOCYTE (%) 5.4 % (3-12); MONOCYTE COUNT 0.4 K/uL (0-0.8); NEUTROPHIL (%) 63.7 % (45-76); NEUTROPHIL COUNT 4.4 K/uL (1.8-6.4); PLATELET COUNT 208 K/uL (156-360); RBC DIS.WIDTH-CV 13.7 % (11.8-14.6); RBC DIS.WIDTH-SD 44.3 % (39-53); RED BLOOD COUNT 3.44 M/uL (3.80-5.20)
[2018-01-26 07:05] LABS: CHLORIDE 103 MEQ/L (99-109); CREATININE 0.6 MG/DL (0.6-1.3); GFR ESTIMATE (CALCULATED) > 59 mL/min/; GLUCOSE 81 mg/dL (70-99); SODIUM 138 MEQ/L (136-147); UREA NITROGEN (BUN) 17 mg/dL (9-23)
[2018-01-26 07:12] VITALS: BP 162/71
== END 2018-01-26 11:00 | disposition home or self-care (01) ==
LOC: EME 12:44 → EDOF 16:56 → 2EAST 16:56 → EDOF 16:56 → ENRESERV 17:04 → 2EAST 19:30
PROVIDERS: Emergency Medicine; Internal Medicine; Physician Assistant
DX: R55 Syncope and collapse (principal); N39.0 Urinary tract infection, site not specified; B96.20 Unspecified Escherichia coli [E. coli] as the cause of diseases classified elsewhere; A04.72 Enterocolitis due to Clostridium difficile, not specified as recurrent; E11.9 Type 2 diabetes mellitus without complications; I10 Essential (primary) hypertension; Z79.4 Long term (current) use of insulin; E78.5 Hyperlipidemia, unspecified; Z87.440 Personal history of urinary (tract) infections; R32 Unspecified urinary incontinence; D64.9 Anemia, unspecified; E86.0 Dehydration; I25.10 Atherosclerotic heart disease of native coronary artery without angina pectoris; I69.351 Hemiplegia and hemiparesis following cerebral infarction affecting right dominant side; Z82.49 Family history of ischemic heart disease and other diseases of the circulatory system; Z79.82 Long term (current) use of aspirin; Z90.710 Acquired absence of both cervix and uterus; K21.9 Gastro-esophageal reflux disease without esophagitis; Z87.891 Personal history of nicotine dependence; Z88.8 Allergy status to other drugs, medicaments and biological substances; Z91.018 Allergy to other foods
CPT/HCPCS: 70450; 71045; 80048; 80076; 81003; 82948; 84443; 84484; 85025; 85027; 87493; 93005; 99281; 99285; G0378; J0360; J0696; J1650; J2405; J7030

== ENCOUNTER 2018-02-25 11:23 | Observation (INO) | payer OTHER ==
[~2018-02-25] VITALS: Ht 175.3 cm; Wt 83.2 kg
[2018-02-25 12:02] LABS: BASOPHIL (%) 0.7 % (0-1); BASOPHIL COUNT 0.1 K/uL (0-0.1); EOSINOPHIL (%) 5.2 % (0-5); EOSINOPHIL COUNT 0.5 K/uL (0-0.3); HEMATOCRIT 29.7 % (36.0-46.0); HEMOGLOBIN 9.8 G/DL (11.9-15.5); IMMATURE GRANULOCYTE (%) 0.6 % (0.0-0.7); LYMPHOCYTE COUNT 2.6 K/uL (1.0-2.8); MCH 29.9 PG (29.0-34.0); MCV 90.5 FL (83-99); MONOCYTE (%) 6.5 % (3-12); MONOCYTE COUNT 0.6 K/uL (0-0.8); PLATELET COUNT 207 K/uL (156-360); RBC DIS.WIDTH-CV 13.2 % (11.8-14.6); RBC DIS.WIDTH-SD 43.4 % (39-53); RED BLOOD COUNT 3.28 M/uL (3.80-5.20); WHITE BLOOD COUNT 8.8 K/uL (4.1-10.2)
[2018-02-25 12:10] LABS: PTT 28.5 SEC (25-37)
[2018-02-25 12:12] LABS: CHLORIDE 103 mEq/L (99-109); POTASSIUM 4.1 mEq/L (3.7-5.4); SODIUM 139 mEq/L (136-147)
[2018-02-25 12:14] LABS: GLUCOSE 99 mg/dL (70-99)
[2018-02-25 12:18] LABS: CREATININE 0.8 mg/dL (0.6-1.3); GFR ESTIMATE (CALCULATED) > 59 mL/min/
[2018-02-25 12:19] LABS: UREA NITROGEN (BUN) 18 mg/dL (9-23)
[2018-02-25 12:25] LABS: TROP-I INTERPRETATION NEGATIVE; TROPONIN-I < 0.01 ng/mL (0.0-0.30)
[2018-02-25] MEDS ORDERED: CARAFATE1 GM PO (13:34)
[2018-02-25] MEDS ORDERED: PROAIR HFA8.5 GM IH (13:34)
[2018-02-25 15:30] VITALS: BP 177/81
[2018-02-25 17:33] LABS: APPEARANCE SL.HAZY ((CLEAR)); BILIRUBIN NEGATIVE; BLOOD NEGATIVE; COLOR YELLOW ((YELLOW)); GLUCOSE (STRIP) NEGATIVE; KETONES NEGATIVE; LEUKOCYTES LARGE; NITRITE NEGATIVE; PROTEIN (STRIP) 100; SPECIFIC GRAVITY 1.019 (1.000-1.030); UROBILINOGEN 0.2 MG/DL (0.2-1.0)
[2018-02-25 17:52] LABS: BACTERIA RARE /HPF; EPITHELIAL CELLS RARE /HPF; MUCUS TRACE /LPF; UCUL ADDED? YES; WHITE BLOOD CELLS TNTC /HPF (0-5)
[2018-02-25 19:00] VITALS: BP 133/61
[2018-02-25 23:53] VITALS: BP 183/85
[2018-02-26 04:23] VITALS: BP 176/84
[2018-02-26 05:17] LABS: HEMATOCRIT 27.5 % (36.0-46.0); HEMOGLOBIN 8.8 G/DL (11.9-15.5); MCH 28.9 PG (29.0-34.0); MCV 90.2 FL (83-99); PLATELET COUNT 176 K/uL (156-360); RBC DIS.WIDTH-CV 13.2 % (11.8-14.6); RBC DIS.WIDTH-SD 43.7 % (39-53); RED BLOOD COUNT 3.05 M/uL (3.80-5.20); WHITE BLOOD COUNT 6.5 K/uL (4.1-10.2)
[2018-02-26 05:36] LABS: ALBUMIN 3.1 G/DL (3.2-4.8); ALKALINE PHOSPHATASE 42 IU/L (3-129); ALT (GPT) 13 IU/L (3-49); AST (GOT) 11 IU/L (2-34); CHLORIDE 106 MEQ/L (99-109); CREATININE 0.8 MG/DL (0.6-1.3); GFR ESTIMATE (CALCULATED) > 59 mL/min/; GLUCOSE 98 mg/dL (70-99); SODIUM 138 MEQ/L (136-147); TOTAL BILIRUBIN 0.2 MG/DL (0.0-1.0); UREA NITROGEN (BUN) 19 mg/dL (9-23)
[2018-02-26 07:39] VITALS: BP 139/98
[2018-02-26 11:41] VITALS: BP 144/70
[2018-02-26 12:06] VITALS: BP 144/70
[2018-02-26] MEDS ORDERED: PROMETHAZINE12.5 M1 PO (12:18)
[2018-02-26] MEDS ORDERED: TOPIRAMATE25 MG PO (12:19)
[2018-02-26] MEDS ORDERED: FIORICET 50-301 EAC1 PO (12:21)
== END 2018-02-26 13:22 | disposition home or self-care (01) ==
LOC: EME 11:23 → EDOF 13:40 → 4SOUTH 13:40 → ENRESERV 13:41 → 4SOUTH 14:54
PROVIDERS: Emergency Medicine; Family Medicine; Physician Assistant
DX: I95.1 Orthostatic hypotension (principal); G43.109 Migraine with aura, not intractable, without status migrainosus; E11.9 Type 2 diabetes mellitus without complications; Z79.4 Long term (current) use of insulin; K21.9 Gastro-esophageal reflux disease without esophagitis; G25.81 Restless legs syndrome; I10 Essential (primary) hypertension; Z86.69 Personal history of other diseases of the nervous system and sense organs; I69.351 Hemiplegia and hemiparesis following cerebral infarction affecting right dominant side; Z86.19 Personal history of other infectious and parasitic diseases; Z87.440 Personal history of urinary (tract) infections; I25.10 Atherosclerotic heart disease of native coronary artery without angina pectoris; E78.5 Hyperlipidemia, unspecified; Z82.49 Family history of ischemic heart disease and other diseases of the circulatory system; Z82.3 Family history of stroke; Z90.710 Acquired absence of both cervix and uterus; Z79.82 Long term (current) use of aspirin; Z79.84 Long term (current) use of oral hypoglycemic drugs; Z87.891 Personal history of nicotine dependence; Z88.1 Allergy status to other antibiotic agents; Z91.018 Allergy to other foods; Z88.6 Allergy status to analgesic agent
CPT/HCPCS: 70450; 71045; 80048; 80053; 81003; 82948; 84484; 85025; 85027; 85610; 85730; 87077; 87086; 87186; 93005; 99202; 99281; 99285; G0378; J1644; J1885; J7030

== ENCOUNTER 2018-04-04 14:02 | Observation (INO) | payer OTHER ==
[~2018-04-04] VITALS: Ht 172.7 cm; Wt 87.0 kg
[~2018-04-04 14:02] MED LIST changes: +CARAFATE1 GM PO; +FIORICET 50-301 EAC1 PO; +PROAIR HFA8.5 GM IH; +TOPIRAMATE25 MG PO
[2018-04-04 14:19] LABS: BASOPHIL (%) 0.5 % (0-1); BASOPHIL COUNT 0.1 K/uL (0-0.1); EOSINOPHIL (%) 2.1 % (0-5); EOSINOPHIL COUNT 0.2 K/uL (0-0.3); HEMATOCRIT 33.2 % (36.0-46.0); HEMOGLOBIN 10.8 G/DL (11.9-15.5); IMMATURE GRANULOCYTE (%) 0.6 % (0.0-0.7); LYMPHOCYTE (%) 29.8 % (15-42); LYMPHOCYTE COUNT 3.3 K/uL (1.0-2.8); MCH 29.3 PG (29.0-34.0); MCHC 32.5 G/DL (30.0-36.0); MCV 90.2 FL (83-99); MONOCYTE (%) 4.9 % (3-12); MONOCYTE COUNT 0.5 K/uL (0-0.8); NEUTROPHIL (%) 62.1 % (45-76); NEUTROPHIL COUNT 6.8 K/uL (1.8-6.4); PLATELET COUNT 256 K/uL (156-360); RBC DIS.WIDTH-SD 42.4 % (39-53); RED BLOOD COUNT 3.68 M/uL (3.80-5.20)
[2018-04-04 14:29] LABS: ALBUMIN 3.9 g/dL (3.2-4.8); CHLORIDE 105 mEq/L (99-109); POTASSIUM 3.8 mEq/L (3.7-5.4); SODIUM 142 mEq/L (136-147)
[2018-04-04 14:30] LABS: AMYLASE 27 IU/L (1-118)
[2018-04-04 14:31] LABS: INTER. NORMALIZED RATIO 1.1
[2018-04-04 14:32] LABS: GLUCOSE 145 mg/dL (70-99); TOTAL PROTEIN 7.2 g/dL (6.4-8.3)
[2018-04-04 14:33] LABS: TOTAL BILIRUBIN 0.3 mg/dL (0.0-1.0)
[2018-04-04 14:34] LABS: PTT 29.2 SEC (25-37)
[2018-04-04 14:35] LABS: ALKALINE PHOSPHATASE 53 IU/L (3-129); CREATININE 1.1 mg/dL (0.6-1.3); GFR ESTIMATE (CALCULATED) 53 mL/min/; SERUM ETHYL ALCOHOL < 10 mg/dL
[2018-04-04 14:36] LABS: UREA NITROGEN (BUN) 19 mg/dL (9-23)
[2018-04-04 14:37] LABS: AST (GOT) 13 IU/L (2-34); DIRECT BILIRUBIN 0.1 mg/dL (0.0-0.3)
[2018-04-04 14:38] LABS: ALT (GPT) 12 IU/L (3-49)
[2018-04-04 14:39] LABS: LIPASE 20 U/L (1.0-51.0)
[2018-04-04 14:41] LABS: TROP-I INTERPRETATION NEGATIVE; TROPONIN-I < 0.01 ng/mL (0.0-0.30)
[2018-04-04] MEDS ORDERED: PROMETHAZINE HC25 M1 PO (17:07)
[2018-04-04] MEDS ORDERED: ADVIL,NUPRIN,M200 MG PO (17:08)
[2018-04-04] MEDS ORDERED: TOPAMAX25 MG PO (17:08)
[2018-04-04 18:18] VITALS: BP 166/90
[2018-04-04 18:19] VITALS: BP 133/71; BP 148/94
[2018-04-04 19:47] VITALS: BP 145/72
[2018-04-04 21:34] LABS: TROP-I INTERPRETATION NEGATIVE; TROPONIN-I < 0.01 ng/mL (0.0-0.30)
[2018-04-05 00:23] VITALS: BP 143/67
[2018-04-05 00:49] LABS: C DIFF TOXIN NEGATIVE (NEGATIVE)
[2018-04-05 03:15] LABS: BASOPHIL (%) 0.4 % (0-1); EOSINOPHIL (%) 2.6 % (0-5); EOSINOPHIL COUNT 0.3 K/uL (0-0.3); HEMATOCRIT 28.9 % (36.0-46.0); HEMOGLOBIN 9.5 G/DL (11.9-15.5); IMMATURE GRANULOCYTE (%) 0.5 % (0.0-0.7); LYMPHOCYTE (%) 21.9 % (15-42); LYMPHOCYTE COUNT 2.1 K/uL (1.0-2.8); MCHC 32.9 G/DL (30.0-36.0); MCV 88.1 FL (83-99); MONOCYTE (%) 5.3 % (3-12); MONOCYTE COUNT 0.5 K/uL (0-0.8); NEUTROPHIL (%) 69.3 % (45-76); NEUTROPHIL COUNT 6.6 K/uL (1.8-6.4); PLATELET COUNT 182 K/uL (156-360); RBC DIS.WIDTH-CV 12.7 % (11.8-14.6); RBC DIS.WIDTH-SD 40.8 % (39-53); RED BLOOD COUNT 3.28 M/uL (3.80-5.20); WHITE BLOOD COUNT 9.5 K/uL (4.1-10.2)
[2018-04-05 03:25] LABS: ALBUMIN 3.5 g/dL (3.2-4.8)
[2018-04-05 03:26] LABS: CHLORIDE 107 mEq/L (99-109); POTASSIUM 3.9 mEq/L (3.7-5.4); SODIUM 142 mEq/L (136-147)
[2018-04-05 03:31] LABS: ALKALINE PHOSPHATASE 49 IU/L (3-129)
[2018-04-05 03:32] LABS: GFR ESTIMATE (CALCULATED) > 59 mL/min/
[2018-04-05 03:33] LABS: AST (GOT) 11 IU/L (2-34); DIRECT BILIRUBIN 0.1 mg/dL (0.0-0.3); UREA NITROGEN (BUN) 21 mg/dL (9-23)
[2018-04-05 03:35] LABS: ALT (GPT) 11 IU/L (3-49)
[2018-04-05 03:36] LABS: GLUCOSE 101 mg/dL (70-99); TOTAL BILIRUBIN 0.2 mg/dL (0.0-1.0); TROP-I INTERPRETATION NEGATIVE; TROPONIN-I < 0.01 ng/mL (0.0-0.30)
[2018-04-05 03:55] VITALS: BP 149/74
[2018-04-05 07:39] VITALS: BP 163/90
[2018-04-05 12:01] VITALS: BP 134/80
[2018-04-05 15:16] VITALS: BP 144/82
== END 2018-04-05 18:56 | disposition home or self-care (01) ==
LOC: EME 14:02 → EDOF 16:03 → ENRESERV 16:31 → 5SOUTH 18:01
PROVIDERS: Emergency Medicine; Hospitalist
DX: R55 Syncope and collapse (principal); G43.109 Migraine with aura, not intractable, without status migrainosus; E11.9 Type 2 diabetes mellitus without complications; I10 Essential (primary) hypertension; I25.10 Atherosclerotic heart disease of native coronary artery without angina pectoris; E78.5 Hyperlipidemia, unspecified; Z86.19 Personal history of other infectious and parasitic diseases; I69.398 Other sequelae of cerebral infarction; Z90.710 Acquired absence of both cervix and uterus; Z99.3 Dependence on wheelchair; Z83.3 Family history of diabetes mellitus; Z82.49 Family history of ischemic heart disease and other diseases of the circulatory system; Z84.1 Family history of disorders of kidney and ureter; Z88.1 Allergy status to other antibiotic agents; Z91.018 Allergy to other foods; Z88.6 Allergy status to analgesic agent
CPT/HCPCS: 70450; 70551; 71045; 80048; 80076; 81003; 82150; 82948; 83690; 84484; 85025; 85379; 85610; 85730; 86850; 86900; 86901; 87493; 93005; 93970; 99281; 99285; G0378; G0480; G8978 GP CJ; G8979 CJ; G8980 CJ; J1644; J1885; J2405; J7030

== ENCOUNTER 2018-05-16 17:00 | Observation (INO) | payer OTHER ==
[~2018-05-16] VITALS: Ht 172.7 cm; Wt 129.1 kg
[~2018-05-16 17:00] MED LIST changes: +ADVIL,NUPRIN,M200 MG PO; +PROMETHAZINE HC25 M1 PO; +TOPAMAX50 MG PO
[2018-05-16 17:58] LABS: BASOPHIL (%) 0.3 % (0-1); EOSINOPHIL (%) 2.5 % (0-5); EOSINOPHIL COUNT 0.2 K/uL (0-0.3); HEMATOCRIT 31.2 % (36.0-46.0); HEMOGLOBIN 10.1 G/DL (11.9-15.5); IMMATURE GRANULOCYTE (%) 0.4 % (0.0-0.7); LYMPHOCYTE (%) 23.8 % (15-42); LYMPHOCYTE COUNT 1.7 K/uL (1.0-2.8); MCH 28.4 PG (29.0-34.0); MCHC 32.4 G/DL (30.0-36.0); MCV 87.6 FL (83-99); MONOCYTE (%) 5.5 % (3-12); MONOCYTE COUNT 0.4 K/uL (0-0.8); NEUTROPHIL (%) 67.5 % (45-76); NEUTROPHIL COUNT 4.8 K/uL (1.8-6.4); PLATELET COUNT 221 K/uL (156-360); RBC DIS.WIDTH-CV 13.5 % (11.8-14.6); RBC DIS.WIDTH-SD 42.9 % (39-53); RED BLOOD COUNT 3.56 M/uL (3.80-5.20); WHITE BLOOD COUNT 7.1 K/uL (4.1-10.2)
[2018-05-16 18:03] LABS: INTER. NORMALIZED RATIO 1.1
[2018-05-16 18:06] LABS: PTT 28.2 SEC (25-37)
[2018-05-16 18:07] LABS: CHLORIDE 105 mEq/L (99-109); POTASSIUM 2.9 mEq/L (3.7-5.4); SODIUM 139 mEq/L (136-147)
[2018-05-16 18:09] LABS: GLUCOSE 220 mg/dL (70-99)
[2018-05-16 18:13] LABS: CREATININE 0.8 mg/dL (0.6-1.3); GFR ESTIMATE (CALCULATED) > 59 mL/min/
[2018-05-16 18:14] LABS: UREA NITROGEN (BUN) 16 mg/dL (9-23)
[2018-05-16 18:16] LABS: TROP-I INTERPRETATION NEGATIVE; TROPONIN-I < 0.01 ng/mL (0.0-0.30)
[2018-05-16] MEDS ORDERED: CARBIDOPA/LEVO1 EACH PO (21:12)
[2018-05-16 23:10] VITALS: BP 140/64
[2018-05-16 23:52] LABS: TROP-I INTERPRETATION NEGATIVE; TROPONIN-I < 0.01 ng/mL (0.0-0.30)
[2018-05-17 03:46] VITALS: BP 153/81
[2018-05-17 05:39] LABS: HEMATOCRIT 31.1 % (36.0-46.0); MCH 27.9 PG (29.0-34.0); MCHC 32.2 G/DL (30.0-36.0); MCV 86.6 FL (83-99); PLATELET COUNT 207 K/uL (156-360); RBC DIS.WIDTH-CV 13.5 % (11.8-14.6); RBC DIS.WIDTH-SD 42.2 % (39-53); RED BLOOD COUNT 3.59 M/uL (3.80-5.20); WHITE BLOOD COUNT 6.6 K/uL (4.1-10.2)
[2018-05-17 06:02] LABS: CHLORIDE 107 MEQ/L (99-109); CREATININE 0.8 MG/DL (0.6-1.3); GFR ESTIMATE (CALCULATED) > 59 mL/min/; POTASSIUM 3.3 MEQ/L (3.7-5.4); SODIUM 141 MEQ/L (136-147); UREA NITROGEN (BUN) 15 mg/dL (9-23)
[2018-05-17 06:04] LABS: GLUCOSE 117 mg/dL (70-99)
[2018-05-17 06:32] LABS: TROP-I INTERPRETATION NEGATIVE; TROPONIN-I < 0.01 ng/mL (0.0-0.30)
[2018-05-17 07:50] VITALS: BP 178/80
[2018-05-17 10:52] VITALS: BP 171/90
[2018-05-17 11:48] VITALS: BP 156/74
[2018-05-17] MEDS ORDERED: LOPRESSOR25 MG PO (15:03)
[2018-05-17] MEDS ORDERED: K-DUR20 MEQ PO (15:05)
== END 2018-05-17 16:13 | disposition home or self-care (01) ==
LOC: EME 17:00 → EDOF 22:02 → ENRESERV 22:11 → 4SOUTH 22:47
PROVIDERS: Emergency Medicine; Hospitalist
DX: R07.9 Chest pain, unspecified (principal); E87.6 Hypokalemia; I10 Essential (primary) hypertension; G20 Parkinson's disease; I25.10 Atherosclerotic heart disease of native coronary artery without angina pectoris; E11.9 Type 2 diabetes mellitus without complications; E78.5 Hyperlipidemia, unspecified; I69.328 Other speech and language deficits following cerebral infarction; I69.398 Other sequelae of cerebral infarction; Z90.710 Acquired absence of both cervix and uterus; Z74.01 Bed confinement status; Z88.1 Allergy status to other antibiotic agents; Z88.6 Allergy status to analgesic agent; Z91.018 Allergy to other foods; Z79.82 Long term (current) use of aspirin
CPT/HCPCS: 71045; 71250; 80048; 82948; 83605; 84484; 85025; 85027; 85610; 85730; 87040; 93005; 99281; 99285; G0378; J1644; J3480